=== PATIENT | male | born 1960 | race Caucasian/White ===

== ENCOUNTER → 2017-11-27 | Outpatient (CLI) | payer OTHER ==
[~2017-11-27] MED LIST: REGADENOSON 0.4 MG/5 ML SYRINGE IV ONE
--- NOTE | 2017-11-27 10:31 | EST ---
EXERCISE STRESS AGE: 57 SEX: M HT: 6' WT: 220 PROTOCOL: Lexiscan Cardiolite Stress Test HEART RATE REST: 61 BLOOD PRESSURE REST: 141/94 MAXIMUM HEART RATE ACHIEVED: 77 MAXIMUM BLOOD PRESSURE: 141/94 85% MPHR: 137 100% MPHR: 161 INDICATIONS: Chest pain. CLINICAL INFORMATION: Baseline EKG shows sinus rhythm, normal axis, normal intervals. Patient was given intravenous Lexiscan as per protocol. Did not have chest pain or diagnostic ST-segment depression. CONCLUSION: 1. Negative stress test by EKG criteria. 2. Cardiolite portion of the stress test will be reported separately. MMODL / IJN: [id number] /
--- NOTE | 2017-11-27 11:16 | NM ---
EXAMINATION TYPE: NM stress lexiscan cardiolite DATE OF EXAM: 11/27/2017 COMPARISON: NONE HISTORY: Chest pain TECHNIQUE: After the intravenous administration of 10.04 mCi Tc 99m Sestamibi - Cardiolite resting S PECT images acquired 45 minutes post injection. The patient received 0.4mg Lexiscan, 25.7 mCi Tc 99m Sestamibi - Stress images obtained [address] injection FINDINGS: Review of stress and rest SPECT images demonstrates decreased radio pharmaceutical uptake at the card iac apex on stress as compared to rest images and also involving the anterior wall the left ventricle , there may be some decreased uptake on stress images as compared to rest images towards the base of the heart at the inferolateral left ventricular wall. Gated analysis shows normal wall motion with a n estimated left ventricular ejection fraction of 54 %. 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 A Yellow level critical message alert has been initiated for Sigrid Rai DO via the [employer] Critical Results System on 11/27/2017 11:13 AM. This message alert has been sent to Sigrid Rustromeo sepulveda DO via the preferences provided by the clinician for the receipt of Radiology Critical Findings . Message ID [id number].
== END | disposition home or self-care (01) ==
LOC: RADNMMAIN 07:49
PROVIDERS: ATTEND Family Medicine
DX: R07.89 Other chest pain (principal)
CPT/HCPCS: 93017; 78452; A9500; J2785

== ENCOUNTER 2017-12-08 10:51 | Day surgery (SDC) | payer OTHER ==
[2017-12-05 08:35] VITALS: BMI 29.8
[~2017-12-08 10:51] MED LIST changes: +ALPRAZolam 0.25 MG TAB PO PRN; +ALPRAZolam 0.5 MG TAB PO PRN; +ASPIRIN 325 MG TAB PO STA; +ATORVASTATIN 80 MG TAB PO STA; +NITROGLYCERIN SL TABS 0.4 MG TAB SUBLINGUAL PRN; -REGADENOSON 0.4 MG/5 ML SYRINGE IV ONE; +SODIUM CHLORIDE 0.9% 1,000 ML in EMPTY BAG 1 BAG IV ONE
[2017-12-08] MEDS ORDERED: MIDAZOLAM 2 MG/2 ML VIAL ONE (12:47)
[2017-12-08] MEDS ORDERED: LIDOCAINE 2% INJ 20 MG/ML (20 ML MDV) ONE (12:47)
[2017-12-08] MEDS ORDERED: VERAPAMIL 2.5 MG/ML 2 ML AMP ONE (12:47)
[2017-12-08] MEDS ORDERED: HEPARIN SODIUM 1,000 UN/ML (10ML VL) ONE (12:48)
[2017-12-08] MEDS ORDERED: fentaNYL (PF) 50 MCG/ML 2 ML AMP ONE ×2 (12:48→14:11)
[2017-12-08] MEDS ORDERED: IV FLUID CONTINUATION 1,000 ML IV ONE (12:53)
[2017-12-08] MEDS ORDERED: MIDAZOLAM 2 MG/2 ML VIAL IV ONE (13:02)
[2017-12-08] MEDS ORDERED: fentaNYL (PF) 50 MCG/ML 2 ML AMP IV ONE ×2 (13:04→14:15)
[2017-12-08] MEDS ORDERED: LIDOCAINE 2% INJ 20 MG/ML SQ ONE (13:05)
[2017-12-08] MEDS ORDERED: BIVALIRUDIN BOLUS 250 MG/50 ML IV ONE (13:40)
--- NOTE | 2017-12-08 13:40 | P.PCN ---
Date of Procedure: 12/08/17 Preoperative Diagnosis: Chest pain and a positive stress test Postoperative Diagnosis: Intermediate to severe disease in the mid LAD Procedure(s) Performed: Left heart catheterization without left ventriculography Description of Procedure: HISTORY: This is a 57-year-old gentleman with history of chest pains and positive stress test with ischemia in the anteroapical region. Patient is advised to have cardiac catheterization for definitive diagnosis. CONSENT:I have discussed the risks, benefits and alternative therapies for the above-mentioned procedure and for both sedation/analgesia as well as necessary blood product administration, if indicated, as they pertain to this patient. The patient has indicated understanding and acceptance of the risks and procedures discussed. PROCEDURE: Patient was brought to the lab in a fasting state. Patient was given some IV sedation. The right groin is infiltrated with lidocaine and right femoral artery was entered using Seldinger technique. A 6-Malay catheter was left in place and selective coronary arteriography and left ventriculography was performed. Patient tolerated the procedure well. Femoral angiogram was performed and Angio-Seal was applied for hemostasis. No immediate complications were noted and patient was transferred to [facility] in a stable condition Conscious Sedation: Versed 1mg Fentanyl 50 g Duration 19minutes HEMODYNAMICS: The aortic pressure is about 140/80. Left ankle end-diastolic pressure is 5-10. There was no gradient across the aortic valve SELECTIVE CORONARY ARTERIOGRAPHY: LEFT MAIN: Long and free of any occlusive disease THE LEFT ANTERIOR DESCENDING CORONARY ARTERY: This is a good caliber vessel in the proximal portion. Use ice to good-sized diagonal branch. There appears to be intermittent stenosis involving the mid LAD off the diagonal branch. In certain views it appears to be critical. Beyond the lesion. The LAD appears to be free of occlusive disease. THE LEFT CIRCUMFLEX AND IS CORONARY ARTERY:This is a moderate caliber vessel free of any significant branches.. Free of any occlusive disease THE RIGHT CORONARY ARTERY: This is a dominant vessel giving rise to good-sized PDA and PLV branches. The right coronary artery and branches are free of occlusive disease LEFT VENTRICULOGRAPHY: Not performed FINAL IMPRESSION: Intermediate to critical lesion involving the mid LAD artery origin of the diagonal PLAN: Patient is going to have FFR by Dr. Self. Further recommendations will depend upon the findings on the FFR PROGNOSIS: Fair
[2017-12-08] MEDS ORDERED: BIVALIRUDIN 250 MG in SODIUM CHLORIDE 0.9% 50 ML IV ONE (13:46)
[2017-12-08] MEDS ORDERED: NITROGLYCERIN 1000MCG/10ML SYRINGE INTRACORON ONE ×2 (13:50→13:51)
[2017-12-08] MEDS ORDERED: IOPAMIDOL-370 125ML BTL INJ ONE (13:54)
[2017-12-08] MEDS ORDERED: ADENOSINE 90 MG in SODIUM CHLORIDE 0.9% 60 ML IVP ONE (14:02)
[2017-12-08] MEDS ORDERED: IOPAMIDOL-370 100ML BTL INJ ONE (14:09)
[2017-12-08] MEDS ORDERED: RX INFO: IV CONTRAST WAS GIVEN 1 EACH MISC MISCELLANE PRN (14:31)
[2017-12-08] MEDS ORDERED: SODIUM CHLORIDE 0.9% 1,000 ML IV SCH (14:45)
[2017-12-08] MEDS ORDERED: ACETAMINOPHEN TAB 325 MG TAB PO PRN (17:57)
[2017-12-08] MEDS: METOPROLOL TARTRATE 25 MG TAB PO SCH (20:18)
--- NOTE | 2017-12-08 21:50 | PCN ---
PROCEDURE NOTE DATE OF SERVICE: December 08, 2017 PERFORMING PHYSICIAN: Gama Ag MD, hearse driver. PROCEDURE PERFORMED: Fractional flow reserve of the LAD. INDICATIONS: This is a pleasant 57-year-old gentleman who sees Dr. Martinez in the office as an outpatient who was experiencing intermittent episodes of chest discomfort and underwent myocardial perfusion imaging stress test and that revealed anteroapical ischemia. He underwent a heart catheterization by Dr. Martinez and that revealed intermediate to severe disease involving the mid LAD by the bifurcation of a diagonal branch. The decision was made towards fractional flow reserve of the LAD to assess the severity of the lesion. APPROACH: Right common femoral artery. COMPLICATION: None. LEVEL OF SEDATION: Moderate with sedation length of 32 minutes. PROCEDURE DESCRIPTION: After diagnostic heart catheterization was performed by Dr. Martinez and after reviewing the angiogram, we decided to do an FFR of the LAD. Anticoagulation was initiated using Angiomax. After zeroing the Doppler wire and equalizing between the Doppler wire and the guiding catheter, we did FFR per IV adenosine infusion and the FFR came in to be 0.85. At that point, we decided to pursue a conservative medical approach and medical treatment only. CONCLUSION: Intermediate to severe lesion involving the mid LAD with FFR of 0.85. POSTPROCEDURE MANAGEMENT: Medical treatment. MMODL / IJN: [id number] /
[2017-12-09 08:11] VITALS: BP 131/78; PULSE 62; RESP 14; TEMP 98
--- NOTE | 2017-12-09 10:32 | P.PN ---
Subjective Progress Note Date: 12/09/17 Discharge note This is a 57-year-old gentleman with history of chest pain and positive stress test with ischemia in the anterior apical region advised to undergo cardiac catheterization. Cardiac catheterization was performed yesterday by Dr. Martinez which revealed intermediate to critical lesion involving the mid LAD. Subsequent to that patient underwent an FFR which came back to be 0.85. Medical therapy was advised. Patient initially was discharged and ready to go yesterday but had some oozing at the groin and therefore was kept overnight. He was seen and examined this morning, groin is stable, no bruit, soft, good distal pulse. Hemodynamically he is stable, denies any chest discomfort. Objective - Vital Signs Vital signs: Vital Signs Temp 98.0 F 12/09/17 08:00 Pulse 62 12/09/17 08:00 Resp 14 12/09/17 08:00 BP 131/78 12/09/17 08:00 Pulse Ox 95 12/09/17 08:00 Intake & Output 12/08/17 12/09/17 12/09/17 18:59 06:59 18:59 Intake Total 474.8 Output Total 900 Balance 474.8 -900 Weight 99.79 kg 99.79 kg Intake: IV 234.8 Oral 240 Output: Urine 900 Other: Voiding Method Urinal Urinal Urinal # Voids 3 - Exam PHYSICAL EXAMINATION: HEENT: Head is atraumatic, normocephalic. Pupils equal, round. Neck is supple. There is no elevated jugular venous pressure. HEART EXAMINATION: Heart S1, S2 normal. No murmur or gallop heard. CHEST EXAMINATION: Lungs are clear to auscultation and precussion. No chest wall tenderness is noted on palpation or with deep breathing. ABDOMEN: Soft, nontender. Bowel sounds are heard. No organomegaly noted. Right groin soft, no hematoma EXTREMITIES: 2+ peripheral pulses with no evidence of peripheral edema and no calf tenderness noted. NEUROLOGIC patient is awake, alert and oriented -3. . Assessment and Plan Plan: Assessment and plan #1 status post cardiac catheterization which revealed a lesion in the LAD, status post FFR which came back to be 0.85. Medical therapy advised. #2 hypertension #3 hyperlipidemia Plan Patient may be able to be discharged home today. We'll make him a follow-up appointment to see Dr. Martinez in the office in one week. Patient will be discharged home on aspirin 81 mg daily, metoprolol 25 mg twice a day, Zestril 5 mg daily and sublingual to this and as needed for chest pain. DNP note has been reviewed, I agree with a documented findings and plan of care. Patient was seen and examined.
[2017-12-09] MEDS: METOPROLOL TARTRATE 25 MG TAB PO SCH (11:34)
== END 2017-12-09 11:40 | disposition home or self-care (01) ==
LOC: CATHCVL 10:51 → 3OBS 14:09 → CATHCVL 12-09 11:40
PROVIDERS: ATTEND Internal Medicine Cardiovascular Disease
DX: I25.10 Atherosclerotic heart disease of native coronary artery without angina pectoris (principal); I10 Essential (primary) hypertension; Z87.891 Personal history of nicotine dependence; Z82.49 Family history of ischemic heart disease and other diseases of the circulatory system; Z79.82 Long term (current) use of aspirin; Z79.899 Other long term (current) drug therapy
CPT/HCPCS: 93571; 93458; C1769 ×2; C1887; C1894; C1760; J2001; J2250; J3010; J0583; J0153; Q9967 ×2

== ENCOUNTER 2018-06-01 09:25 | Day surgery (SDC) | payer OTHER ==
[2018-05-31 08:22] VITALS: BMI 29.5
[~2018-06-01 09:25] MED LIST changes: -ALPRAZolam 0.25 MG TAB PO PRN; -ALPRAZolam 0.5 MG TAB PO PRN; -ASPIRIN 325 MG TAB PO STA; -ATORVASTATIN 80 MG TAB PO STA; +LACTATED RINGERS 1,000 ML IV SCH; -NITROGLYCERIN SL TABS 0.4 MG TAB SUBLINGUAL PRN; -SODIUM CHLORIDE 0.9% 1,000 ML in EMPTY BAG 1 BAG IV ONE
[2018-06-01 09:44] VITALS: RESP 16; TEMP 97.9
[2018-06-01] MEDS ORDERED: LIDOCAINE 1% 20 ML VIAL (10MG/ML) FOR IV START INTRADERMA ONE (09:50)
[2018-06-01] MEDS ORDERED: LACTATED RINGERS 1,000 ML IV ONE (09:51)
[2018-06-01] MEDS ORDERED: GLYCOPYRROLATE 0.2 MG/ML 2 ML VIAL ONE (12:05)
[2018-06-01] MEDS ORDERED: PROPOFOL 10 MG/ML 20 ML VIAL IV ONE (12:05)
[2018-06-01] MEDS ORDERED: LIDOCAINE 1% INJ 10MG/ML (20 ML MDV) ONE (12:05)
--- NOTE | 2018-06-01 12:09 | P.GSHP ---
History of Present Illness H&P Date: 06/01/18 Chief Complaint: screening colonoscopy 's is a 58-year-old male who presents today for screening colonoscopy. Patient denies any significant GI complaints. Past Medical History Past Medical History: Liver Disease, Osteoarthritis (OA) Additional Past Medical History / Comment(s): RECENT BLOOD IN STOOL, Cirrosis of liver. past Hx Hep. C, finished tx, currently no problems. History of Any Multi-Drug Resistant Organisms: None Reported Past Surgical History: Hernia Repair, Tonsillectomy Past Anesthesia/Blood Transfusion Reactions: No Reported Reaction Smoking Status: Former smoker - Past Family History Father Family Medical History: Myocardial Infarction ([place]) Additional Family Medical History / Comment(s): ay age 53. Mother Additional Family Medical History / Comment(s): Very poor circlualtion in legs, had to have surgery for. Medications and Allergies Home Medications Medication Instructions Recorded Confirmed Type Aspirin 325 mg PO ONCE 12/05/17 05/31/18 History Lisinopril [Zestril] 5 mg PO DAILY 12/05/17 06/01/18 History Metoprolol Tartrate 25 mg PO BID 12/05/17 06/01/18 History Multivitamins, Thera [Multivitamin 1 tab PO DAILY 12/05/17 06/01/18 History (formulary)] Sertraline [Zoloft] 50 mg PO DAILY 12/05/17 06/01/18 History Zolpidem Tartrate [Ambien] 5 mg PO HS 12/05/17 06/01/18 History Allergies Allergy/AdvReac Type Severity Reaction Status Date / Time bupropion [From Wellbutrin] Allergy Rash/Hives Verified 06/01/18 09:37 Surgical - Exam Vital Signs Temp Pulse Resp BP Pulse Ox 97.9 F 53 L 16 149/70 97 06/01/18 09:43 06/01/18 09:43 06/01/18 09:43 06/01/18 09:43 06/01/18 09:43 - General well developed, no distress - Eyes PERRL - ENT normal pinna - Neck no masses - Respiratory normal expansion - Cardiovascular Rhythm: regular - Abdomen Abdomen: soft, non tender Assessment and Plan Assessment: we'll perform screening colonoscopy.
--- NOTE | 2018-06-01 12:20 | P.OP ---
Date of Procedure: 06/01/18 Preoperative Diagnosis: screening colonoscopy Postoperative Diagnosis: mild diverticulosis Procedure(s) Performed: colonoscopy Anesthesia: MAC Surgeon: Wilbur Walker Pathology: none sent Condition: stable Disposition: PACU Description of Procedure: the patient's placed on the endoscopy table in the lateral position. He received IV sedation. Digital rectal exam was performed which revealed no ebonized. The prostate was symmetric without nodules. The flexible colonoscope was then placed patient anus and passed throughout the entire colon. The ileocecal valve was visualized. The cecum, ascending and transverse colon appeared normal. In the descendingand sigmoid was mild diverticular changes. Scope was then brought back the rectum and this appeared normal. Scope was withdrawn for patient.
[2018-06-01 12:40] VITALS: BP 105/69; PULSE 56
== END 2018-06-01 13:05 | disposition home or self-care (01) ==
LOC: ORWHC2ENDO 09:25
PROVIDERS: ATTEND Surgery
DX: Z12.11 Encounter for screening for malignant neoplasm of colon (principal); K57.30 Diverticulosis of large intestine without perforation or abscess without bleeding; M19.90 Unspecified osteoarthritis, unspecified site; I10 Essential (primary) hypertension; Z87.891 Personal history of nicotine dependence; Z79.82 Long term (current) use of aspirin; Z82.49 Family history of ischemic heart disease and other diseases of the circulatory system; Z86.19 Personal history of other infectious and parasitic diseases; Z88.8 Allergy status to other drugs, medicaments and biological substances; Z79.899 Other long term (current) drug therapy
CPT/HCPCS: 45378; J2001; J2704

== ENCOUNTER → 2018-12-18 | Outpatient (CLI) | payer OTHER ==
--- NOTE | 2018-12-18 13:02 | CT ---
EXAMINATION TYPE: CT chest wo con DATE OF EXAM: 12/18/2018 COMPARISON: None HISTORY: 58-year-old male Mid to left chest pain x 1 year. TECHNIQUE: Contiguous axial scanning of the chest without IV contrast. Coronal and sagittal reconstru ctions performed. CT DLP: 618 mGycm Automated exposure control for dose reduction was used. FINDINGS: Heart normal size without pericardial effusion. Coronary vessel calcifications are present. Borderline ectatic ascending aorta at 3.5 cm. Conventional branching anatomy. Calcified precarinal and subcarinal lymph nodes compatible prior granulomatous disease. No thoracic l ymphadenopathy. Trace bilateral gynecomastia. Mild biapical pleural parenchymal scarring with mild centrilobular emphysema. Calcified granuloma basilar right middle lobe. 7 mm right basilar pulmonary nodule, axial image 45. No consolidation or pleural effusion. Visualized upper abdomen shows splenomegaly at 16.6 cm with an anterior splenule. Possible subtle con tour nodularity of the liver. Cholelithiasis with collapsed gallbladder comment prominent small colla teral vessels adjacent to the gastric fundus. Bones: No osseous destructive process. Mild to moderate multilevel degenerative disc disease. IMPRESSION: 1. COPD WITH MILD EMPHYSEMA AND PRIOR GRANULOMATOUS DISEASE. 7 MM RIGHT BASILAR PULMONARY NODULE MAY REPRESENT A NONCALCIFIED GRANULOMA. [address] MON[address] FOLLOW-UP CT RECOMMENDED TO REASSESS. 2. SPLENOMEGALY AT 16.6 CM. PROMINENT UPPER ABDOMINAL COLLATERAL VESSELS. POSSIBLE SUBTLE CONTOUR NOD ULARITY OF THE LIVER. CORRELATE FOR POSSIBLE UNDERLYING CIRRHOSIS AND PORTAL VENOUS HYPERTENSION. 3. CHOLELITHIASIS.
== END ==
LOC: RADCTMAIN 11:23
PROVIDERS: ATTEND Family Medicine
DX: R07.9 Chest pain, unspecified (principal); J43.9 Emphysema, unspecified; R91.1 Solitary pulmonary nodule; R16.1 Splenomegaly, not elsewhere classified; K80.20 Calculus of gallbladder without cholecystitis without obstruction
CPT/HCPCS: 71250

== ENCOUNTER 2019-01-08 10:11 | Day surgery (SDC) | payer OTHER ==
[2019-01-04 08:47] VITALS: BMI 29.8
[2019-01-08 10:25] VITALS: RESP 16; TEMP 97.8
[2019-01-08] MEDS ORDERED: LIDOCAINE 1% 20 ML VIAL (10MG/ML) FOR IV START INTRADERMA ONE (10:25)
--- NOTE | 2019-01-08 10:51 | P.GSHP ---
History of Present Illness H&P Date: 01/08/19 Chief Complaint: GERD This a 58-year-old male referred from Dr. Sigrid Rai. Patient is today for EGD. He's had issues with GERD. Past Medical History Past Medical History: Hyperlipidemia, Hypertension, Liver Disease, Osteoarthri tis (OA) Additional Past Medical History / Comment(s): Cirrosis of liver. past Hx Hep. C, finished tx, currently no problems.,SMALL HEART BLOCKAGE History of Any Multi-Drug Resistant Organisms: None Reported Past Surgical History: Heart Catheterization, Hernia Repair, Tonsillectomy Additional Past Surgical History / Comment(s): COLONOSCOPY X 2 Past Anesthesia/Blood Transfusion Reactions: No Reported Reaction Smoking Status: Former smoker - Past Family History Father Family Medical History: Myocardial Infarction ([place]) Additional Family Medical History / Comment(s): ay age 53. Mother Additional Family Medical History / Comment(s): Very poor circlualtion in legs, had to have surgery for. Medications and Allergies Home Medications Medication Instructions Recorded Confirmed Type Lisinopril [Zestril] 5 mg PO DAILY 12/05/17 01/04/19 History Metoprolol Tartrate 25 mg PO BID 12/05/17 01/08/19 History Multivitamins, Thera [Multivitamin 1 tab PO DAILY 12/05/17 01/08/19 History (formulary)] Sertraline [Zoloft] 50 mg PO DAILY 12/05/17 01/08/19 History Zolpidem Tartrate [Ambien] 5 mg PO HS PRN MDD TAKE EITHER 12/05/17 01/08/19 History AMBIEN OR TRAZODON Aspirin [Adult Low Dose Aspirin EC] 81 mg PO DAILY 01/04/19 01/04/19 History Atorvastatin [Lipitor] 10 mg PO HS 01/04/19 01/04/19 History Clopidogrel [Plavix] 75 mg PO DAILY 01/04/19 01/04/19 History amLODIPine [Norvasc] 5 mg PO DAILY 01/04/19 01/04/19 History traZODone HCL 25 mg PO HS PRN MDD TAKE EITHER 01/04/19 01/08/19 History TRAZODONE OR AMBIE Allergies Allergy/AdvReac Type Severity Reaction Status Date / Time bupropion [From Wellbutrin] Allergy Rash/Hives Verified 01/08/19 10:22 Surgical - Exam Vital Signs Temp Pulse Resp BP Pulse Ox 97.8 F 54 L 16 133/77 96 01/08/19 10:24 01/08/19 10:24 01/08/19 10:24 01/08/19 10:24 01/08/19 10:24 - General well developed, well nourished, no distress - Eyes PERRL - ENT normal pinna - Neck no masses - Respiratory normal expansion - Cardiovascular Rhythm: regular - Abdomen Abdomen: soft, non tender Assessment and Plan Assessment: GERD. We'll perform EGD.
[2019-01-08] MEDS ORDERED: LIDOCAINE 1% INJ 10MG/ML (20 ML MDV) ONE (10:52)
[2019-01-08] MEDS ORDERED: PROPOFOL 10 MG/ML 20 ML VIAL IV ONE (10:52)
--- NOTE | 2019-01-08 11:03 | P.OP ---
Date of Procedure: 01/08/19 Preoperative Diagnosis: GERD Postoperative Diagnosis: Antral gastritis Procedure(s) Performed: EGD Anesthesia: MAC Surgeon: Wilbur Walker Pathology: other (Antral, esophagus) Condition: stable Disposition: PACU Description of Procedure: The patient's placed on the endoscopy table in the lateral position. He received IV sedation. The gastroscope placed oropharynx and passed in the esophagus and into the stomach. Scope was placed through the pylorus. The first and second portion duodenum. Normal. Scope was then brought back the antrum this. Mildly inflamed. A biopsies performed. The scope was then retroflexed and the remainder the stomach appeared normal. There was no significant hiatal hernia. The distal esophagus was at 47 is. The distal esophagus appeared mildly inflamed and a biopsies performed. The proximal esophagus appeared normal. Scope was withdrawn for patient.
[2019-01-08 11:24] VITALS: BP 119/73; PULSE 56
== END 2019-01-08 11:43 | disposition home or self-care (01) ==
LOC: ORWHC2ENDO 10:11
PROVIDERS: ATTEND Surgery
DX: K21.9 Gastro-esophageal reflux disease without esophagitis (principal); K29.50 Unspecified chronic gastritis without bleeding; K31.89 Other diseases of stomach and duodenum; K22.8 Other specified diseases of esophagus; Z86.19 Personal history of other infectious and parasitic diseases; I11.9 Hypertensive heart disease without heart failure; E78.5 Hyperlipidemia, unspecified; K74.60 Unspecified cirrhosis of liver; M19.90 Unspecified osteoarthritis, unspecified site; Z87.891 Personal history of nicotine dependence; Z97.2 Presence of dental prosthetic device (complete) (partial); Z79.82 Long term (current) use of aspirin; Z79.02 Long term (current) use of antithrombotics/antiplatelets; Z79.899 Other long term (current) drug therapy; Z88.8 Allergy status to other drugs, medicaments and biological substances; Z82.49 Family history of ischemic heart disease and other diseases of the circulatory system
CPT/HCPCS: 43239; 88305; J2001; J2704

== ENCOUNTER 2019-01-14 07:47 | Day surgery (SDC) | payer OTHER ==
[2019-01-09 15:58] VITALS: BMI 30.1
[~2019-01-14 07:47] MED LIST changes: +DEXAMETHASONE SOD PHOSPHATE 10 MG/ML 1 ML VIAL IV ONE; +HEPARIN SODIUM,PORCINE 5,000 UNIT/ML 1 ML VIAL SQ ONE; +LIDOCAINE 1% 20 ML VIAL (10MG/ML) FOR IV START INTRADERMA PRN; +MIDAZOLAM 2 MG/2 ML VIAL IV PRN; +ceFAZolin IN SWFI 2 GM/20 ML SYRINGE IVP ONE
[2019-01-14] MEDS ORDERED: ONDANSETRON 4 MG/2 ML VIAL IVP ONE (08:19)
--- NOTE | 2019-01-14 08:52 | P.GSHP ---
History of Present Illness H&P Date: 01/14/19 Chief Complaint: Right upper quadrant pain This a 4-year-old male who's had complaints of right upper quadrant pain. Recent CAT scan shows evidence of cholelithiasis. He presents today for laparoscopic cholecystectomy. Past Medical History Past Medical History: Coronary Artery Disease (CAD), Chest Pain / Angina, Hypertension, Liver Disease, Osteoarthritis (OA) Additional Past Medical History / Comment(s): diverticulitis, Cirrhosis of liver. past Hx Hep. C- finished tx, mild emphysema History of Any Multi-Drug Resistant Organisms: None Reported Past Surgical History: Hernia Repair, Tonsillectomy Additional Past Surgical History / Comment(s): vasectomy, oral surgery Past Anesthesia/Blood Transfusion Reactions: Motion Sickness Additional Past Anesthesia/Blood Transfusion Reaction / Comment(s): got seasick on a cruise Smoking Status: Former smoker - Past Family History Father Family Medical History: Myocardial Infarction ([place]) Additional Family Medical History / Comment(s): ay age 53. Mother Family Medical History: Deep Vein Thrombosis (DVT) Additional Family Medical History / Comment(s): . Medications and Allergies Home Medications Medication Instructions Recorded Confirmed Type Metoprolol Tartrate 25 mg PO BID 12/05/17 01/14/19 History Multivitamins, Thera [Multivitamin 1 tab PO DAILY 12/05/17 01/14/19 History (formulary)] Sertraline [Zoloft] 50 mg PO HS 12/05/17 01/14/19 History Zolpidem Tartrate [Ambien] 5 mg PO HS PRN MDD TAKE EITHER 12/05/17 01/14/19 History AMBIEN OR TRAZODON Aspirin [Adult Low Dose Aspirin EC] 81 mg PO DAILY 01/04/19 01/14/19 History Atorvastatin [Lipitor] 10 mg PO HS 01/04/19 01/14/19 History Clopidogrel [Plavix] 75 mg PO HS 01/04/19 01/14/19 History amLODIPine [Norvasc] 5 mg PO HS 01/04/19 01/14/19 History traZODone HCL 25 mg PO HS PRN MDD TAKE EITHER 01/04/19 01/14/19 History TRAZODONE OR AMBIE Lisinopril 40 mg PO DAILY 01/10/19 01/14/19 History Naproxen Sodium [Aleve] 220 mg PO DAILY 01/10/19 01/14/19 History Omeprazole [PriLOSEC] 40 mg PO DAILY 01/10/19 01/14/19 History Allergies Allergy/AdvReac Type Severity Reaction Status Date / Time bupropion [From Wellbutrin] Allergy Rash/Hives/ Verified 01/14/19 08:02 itching heptitis C medication Allergy dry skin Uncoded 01/14/19 08:02 Surgical - Exam Vital Signs Temp Pulse Resp BP Pulse Ox 98.2 F 57 L 15 129/74 96 01/14/19 08:07 01/14/19 08:07 01/14/19 08:07 01/14/19 08:07 01/14/19 08:07 - General well developed, well nourished, no distress - Eyes PERRL - ENT normal pinna - Neck no masses - Respiratory normal expansion - Cardiovascular Rhythm: regular - Abdomen Abdomen: soft, non tender Assessment and Plan Assessment: Cholelithiasis Right quadrant pain Perform laparoscopic cholecystectomy
[2019-01-14] MEDS ORDERED: fentaNYL (PF) 50 MCG/ML 2 ML AMP ONE (09:01)
[2019-01-14] MEDS ORDERED: PROPOFOL 10 MG/ML 20 ML VIAL IV ONE (09:01)
[2019-01-14] MEDS ORDERED: MIDAZOLAM 2 MG/2 ML VIAL ONE (09:01)
[2019-01-14] MEDS ORDERED: LIDOCAINE 1% INJ 10MG/ML (20 ML MDV) ONE (09:01)
[2019-01-14] MEDS ORDERED: SUCCINYLCHOLINE CHLORIDE 100 MG/5 ML SYR IV ONE (09:01)
[2019-01-14] MEDS ORDERED: ROCURONIUM BROMIDE 10 MG/ML 10 ML VIAL IV ONE (09:01)
[2019-01-14] MEDS ORDERED: GLYCOPYRROLATE 0.2 MG/ML 2 ML VIAL ONE (09:01)
[2019-01-14] MEDS ORDERED: NEOSTIGMINE 1 MG/ML 10 ML VIAL ONE (09:01)
[2019-01-14] MEDS ORDERED: KETOROLAC 30 MG/ML 1 ML VIAL ONE (09:01)
[2019-01-14] MEDS ORDERED: BUPIVACAIN-EPI 0.25%-1:200,000 30 ML VIAL SQ ONE (09:30)
[2019-01-14 09:57] VITALS: TEMP 97.2
--- NOTE | 2019-01-14 09:57 | P.OP ---
Date of Procedure: 01/14/19 Preoperative Diagnosis: Cholelithiasis Postoperative Diagnosis: Cholelithiasis Procedure(s) Performed: Laparoscopic cholecystectomy Anesthesia: MELYSSA Surgeon: Wilbur Walker Estimated Blood Loss (ml): 5 Pathology: other (Gallbladder) Condition: stable Disposition: PACU Description of Procedure: The patient was placed on the operating table. The patient received a general endotracheal tube anesthesia. The patients abdomen was prepped and draped in the usual sterile fashion. Through an infraumbilical stab incision, the fascia of the anterior abdominal wall was grasped with a pair of Kochers and then the Veress needle was placed in the peritoneal cavity. Position of the Veress needle was confirmed with positive drop test. The abdomen was then insufflated. After adequate insufflation, the 10 mm trocar was placed in the peritoneal cavity. Following this the laparoscope was placed in the peritoneal cavity. The patient was placed in the head-up, right side up position and then a 5 mm trocar was placed in the right lateral and right subcostal position under direct visualization. A 8 mm trocar was placed in the epigastric position. The gallbladder was grasped in the fundus and infundibulum. Traction on the gallbladder was placed in the lateral and the cephalad positions. The triangle of Calot was visualized.. The cystic duct was bluntly dissected until the union of the cystic duct and common bile duct was seen. A critical view of safety was achieved. The cystic duct was then divided and sealed with the Harmonic scissors. A PDS Endoloop was then placed throughout the cystic duct stump. The cystic artery divided and sealed with the Harmonic scissors. The gallbladder was then removed from the liver bed using Harmonic scissors. The gallbladder was then extracted through the epigastric port site. Operative field was checked for any bleeding spots and Harmonic scissors was used to coagulate the liver bed. The abdomen was irrigated. The trocars were removed. The skin was closed using interrupted 3-0 Vicryl suture. Dermabond dressing were applied. The patient tolerated the procedure well.
[2019-01-14] MEDS: fentaNYL (PF) 50 MCG/ML 2 ML AMP IV PRN ×2 (10:23→10:30)
[2019-01-14] MEDS ORDERED: HYDROcodone/APAP 7.5-325MG 1 EACH TAB PO ONE (11:02)
[2019-01-14 11:45] VITALS: BP 112/74; PULSE 69; RESP 20
== END 2019-01-14 12:10 | disposition home or self-care (01) ==
LOC: OR 07:47
PROVIDERS: ATTEND Surgery
DX: K80.10 Calculus of gallbladder with chronic cholecystitis without obstruction (principal); I10 Essential (primary) hypertension; I25.119 Atherosclerotic heart disease of native coronary artery with unspecified angina pectoris; E78.5 Hyperlipidemia, unspecified; M19.90 Unspecified osteoarthritis, unspecified site; F32.9 Major depressive disorder, single episode, unspecified; K74.60 Unspecified cirrhosis of liver; J43.9 Emphysema, unspecified; K21.9 Gastro-esophageal reflux disease without esophagitis; Z86.19 Personal history of other infectious and parasitic diseases; Z87.891 Personal history of nicotine dependence; Z97.2 Presence of dental prosthetic device (complete) (partial); Z79.899 Other long term (current) drug therapy; Z79.82 Long term (current) use of aspirin; Z79.02 Long term (current) use of antithrombotics/antiplatelets; Z79.1 Long term (current) use of non-steroidal anti-inflammatories (NSAID); Z88.8 Allergy status to other drugs, medicaments and biological substances
CPT/HCPCS: 47562; 88304; J2250; J1644; J1100; J2710; J2405; J2001; J3010; J1885; J0330; J2704; J0690

== ENCOUNTER → 2020-03-16 | Outpatient (CLI) | payer OTHER ==
[2020-03-16 17:18] LABS: Chol/HDL Ratio 2.17; LDL Cholesterol,Calculated 20.8 mg/dL (0.0-131.0); VLDL Calculation 21.2 mg/dL (5.00-40.00)
[2020-03-17 10:38] LABS: Lipoprotein A 6 mg/dL (0-30)
== END ==
LOC: LABWHC1 07:18
PROVIDERS: ATTEND Internal Medicine Clinical Cardiac Electrophysiology
DX: I25.10 Atherosclerotic heart disease of native coronary artery without angina pectoris (principal); E78.5 Hyperlipidemia, unspecified
CPT/HCPCS: 36415; 80061; 82172; 83695

== ENCOUNTER → 2020-09-02 | Outpatient (CLI) | payer OTHER ==
[2020-09-02 13:09] VITALS: BP 152/89; PULSE 60; RESP 18; TEMP 97.4
--- NOTE | 2020-09-02 13:59 | P.PAINCN ---
History of Present Illness - Reason for Consult Consult date: 09/02/20 - History of Present Illness This is 60 years old male with a chronic history of severe neck pain, started 6 possible after work-related injury(trauma to the head ) after that he started complaining of severe neck pain with occasional headaches, and he had occasional numbness and tingling sensation in the upper extremity, the neck pain is interfering with his ability to move his neck, and intensity of the neck pain increased with activity of daily livings, he denies any motor or sensory deficit he denies any fever or night sweats, he continued to work, but the intensity of the neck pain interfere with her quality of life, he denies any change in the bowel movements or urination Past Medical History Past Medical History: COPD, Liver Disease, Osteoarthritis (OA) Additional Past Medical History / Comment(s): RECENT BLOOD IN STOOL, Cirrosis of liver. past Hx Hep. C, finished tx, currently no problems. History of Any Multi-Drug Resistant Organisms: None Reported Past Surgical History: Hernia Repair, Tonsillectomy Additional Past Surgical History / Comment(s): vasectomy, oral surgery, gaull bladder, stent. Past Anesthesia/Blood Transfusion Reactions: No Reported Reaction Additional Past Anesthesia/Blood Transfusion Reaction / Comm: got seasick on a cruise Past Psychological History: Depression Smoking Status: Former smoker Past Alcohol Use History: None Reported Additional Past Alcohol Use History / Comment(s): Quit smoking 2012, smoked 35 yrs, 1 PPD. Past Drug Use History: None Reported - Past Family History Father Family Medical History: Myocardial Infarction ([place]) Additional Family Medical History / Comment(s): ay age 53. Mother Family Medical History: Deep Vein Thrombosis (DVT) Additional Family Medical History / Comment(s): heart disease. Medications and Allergies Home Medications Medication Instructions Recorded Confirmed Type Metoprolol Tartrate 25 mg PO BID 12/05/17 09/02/20 History Multivitamins, Thera [Multivitamin 1 tab PO DAILY 12/05/17 09/02/20 History (formulary)] Sertraline [Zoloft] 50 mg PO HS 12/05/17 09/02/20 History Aspirin [Adult Low Dose Aspirin EC] 81 mg PO DAILY 01/04/19 09/02/20 History Atorvastatin [Lipitor] 10 mg PO HS 01/04/19 09/02/20 History Clopidogrel [Plavix] 75 mg PO HS 01/04/19 09/02/20 History amLODIPine [Norvasc] 5 mg PO HS 01/04/19 09/02/20 History traZODone HCL 25 mg PO HS PRN MDD TAKE EITHER 01/04/19 09/02/20 History TRAZODONE OR AMBIE Naproxen Sodium [Aleve] 220 mg PO DAILY 01/10/19 09/02/20 History Omeprazole [PriLOSEC] 40 mg PO DAILY 01/10/19 09/02/20 History lisinopriL 40 mg PO DAILY 01/10/19 09/02/20 History Allergies Allergy/AdvReac Type Severity Reaction Status Date / Time bupropion [From Wellbutrin] Allergy Rash/Hives/ Verified 01/14/19 08:02 itching heptitis C medication Allergy dry skin Uncoded 01/14/19 08:02 Physical Exam Vitals: Vital Signs Temp Pulse Resp BP Pulse Ox 09/02/20 12:57 97.4 F L 60 18 152/89 96 Intake and Output 09/01/20 09/02/20 09/02/20 22:59 06:59 14:59 Other: Weight 62.142 kg Physical Examinations : -Constitutiona : Cooperative , not in acute distress . -HEENT : nech : supple , no Lymphadenopathy , normal thyroid size . : eyes : no ptosis , no icterus, no photophobia . - neurologic : Cranial nerve II to XII intact , no focal neurological deffecit . -psychatric : alert , oriented X 3 , appropriate affect , intact judgment and insight . -Lymphatic : no Lymphadenopathy . - musculoskeltal : Cervical Spine motor stregnth in the deltoid and biceps, normal right side , normal Left side motor stregnth biceps and the wrist extensors normal right side ,normal left side . motor stregnth in the triceps muscle . normal Right side , normal Left side deep tendon reflexes normal at the biceps , normal at Brachioradialis , normal at triceps. cervical facet loading test: Positive Bilaterally Spurling test= positive Right , positiv e left. Neck distraction test= positive Right , positive left. Maureen sign= positive right, positive left . Shoulder exam= left shoulder full range of motion, within normal limits Right shoulder abduction and adduction on lateral rotation of the right shoulder associated with some pain Lumber spine moter stegnth lower extremities ,thigh and legs 5/5 Right side , 5/5 Left side Results Comments: MRI of the lumbar spine C3- 4 ,C4-5 ,C5-6 degenerative disc disease and facet arthropathy and foraminal stenosis Assessment and Plan Plan: Assessment and plan=1-cervical spondylosis with cervical facet arthropathy without myelopathy 2-cervical degenerative disc disease. 3-cervical foraminal stenosis. he will be scheduled to have diagnostic medial branch block cervical area C3, C4, C5 bilaterally x2 and possible RFA We have to hold Plavix for 7 days before the procedure Time with Patient: Greater than 30 PQRS Measure Charge Sheet Measure #130: Documentation of Current Meds in Medical Chart: Patient's medications documented in chart Measure #226: Tobacco Use: Screen & Cessation Intervention: Pt not a tobacco user Measure #111: Pneumonia Vaccination: Pneumococcal vaccine NOT administered or previously given Measure #47: Advance Care Plan: Advance care planning discussed & documented, pt chose/unable to give Measure #412: Opioid Treatment Agreement: No documentation of signed opioid treatment agreement Measure #408: Opioid Therapy Follow-up Evaluation: Patient had NO f/u eval minimum every 3 months during opioid therapy Measure #317: Preventitive Care & Scrn High Bld Press & F/U: Pre-hypertensive or hypertensive BP documented, pt will f/u with PCP Measure #128: Body Mass Index (BMI) Screening & Follow-up: BMI documented ABOVE normal parameters - f/u documented Measure #131: Pain Assessment & Follow-up: Pain positive & plan documented, Follow-up scheduled Measure #431: Unhealthy Alcohol Use Preventative Care & Scrn: Patient not luis enrique ntified as an unhealthy alcohol user PQRS Narrative: Smoking Status Former smoker Blood Pressure 152/89 Pain Intensity [Neck] 3 Scale Used Numeric (1 - 10) Hx Alcohol Use (MH) No Home Medications: Ambulatory Orders Metoprolol Tartrate 25 mg PO BID 12/05/17 Multivitamins, Thera [Multivitamin (formulary)] 1 tab PO DAILY 12/05/17 Sertraline [Zoloft] 50 mg PO HS 12/05/17 Aspirin [Adult Low Dose Aspirin EC] 81 mg PO DAILY 01/04/19 Atorvastatin [Lipitor] 10 mg PO HS 01/04/19 Clopidogrel [Plavix] 75 mg PO HS 01/04/19 amLODIPine [Norvasc] 5 mg PO HS 01/04/19 traZODone HCL 25 mg PO HS PRN MDD TAKE EITHER TRAZODONE OR AMBIE 01/04/19 Naproxen Sodium [Aleve] 220 mg PO DAILY 01/10/19 Omeprazole [PriLOSEC] 40 mg PO DAILY 01/10/19 lisinopriL 40 mg PO DAILY 01/10/19
== END | disposition home or self-care (01) ==
LOC: PNWHC3 12:52
PROVIDERS: ATTEND Specialist
DX: M47.812 Spondylosis without myelopathy or radiculopathy, cervical region (principal); M19.90 Unspecified osteoarthritis, unspecified site; E78.5 Hyperlipidemia, unspecified; Z79.1 Long term (current) use of non-steroidal anti-inflammatories (NSAID); Z79.82 Long term (current) use of aspirin; Z79.899 Other long term (current) drug therapy; Z87.891 Personal history of nicotine dependence; Z88.5 Allergy status to narcotic agent; Z88.8 Allergy status to other drugs, medicaments and biological substances; Z79.891 Long term (current) use of opiate analgesic; Z79.02 Long term (current) use of antithrombotics/antiplatelets
CPT/HCPCS: 99211

== ENCOUNTER 2020-09-18 12:51 | Day surgery (SDC) | payer OTHER ==
[2020-09-16 10:39] VITALS: BMI 32.1
[~2020-09-18 12:51] MED LIST changes: -DEXAMETHASONE SOD PHOSPHATE 10 MG/ML 1 ML VIAL IV ONE; -HEPARIN SODIUM,PORCINE 5,000 UNIT/ML 1 ML VIAL SQ ONE; +HYDROmorphone 0.5 MG/0.5 ML SYRINGE IVP PRN; -LIDOCAINE 1% 20 ML VIAL (10MG/ML) FOR IV START INTRADERMA PRN; -ceFAZolin IN SWFI 2 GM/20 ML SYRINGE IVP ONE
[2020-09-18 13:31] VITALS: TEMP 97.5
[2020-09-18] MEDS ORDERED: ROPIVACAINE 5MG/ML 20ML VIAL ONE (14:00)
[2020-09-18] MEDS ORDERED: fentaNYL (PF) 50 MCG/ML 2 ML AMP ONE (14:00)
[2020-09-18] MEDS ORDERED: methylPREDNISolone ACETATE 40 MG/ML 1 ML VIAL ONE (14:00)
[2020-09-18] MEDS ORDERED: MIDAZOLAM 2 MG/2 ML VIAL ONE (14:00)
--- NOTE | 2020-09-18 14:16 | P.PCN ---
Date of Procedure: 09/18/20 Procedure(s) Performed: PREOPERATIVE DIAGNOSIS: Cervical Spondylosis with Facet Arthropathy.without myelopathy POSTOPERATIVE DIAGNOSIS: Cervical Spondylosis Facet Arthropathy. Without myelopathy PROCEDURES: Diagnostic bilateral C3, C4 , C5 medial branch blocks, with fluoroscopic guidance (fluoroscopy images available in radiology department ) ( to target the facet joint at bilateral C3- 4 , C4- 5 , ) ANESTHESIA: Monitored anesthesia care as per anesthesia department. EBL: Minimal PROCEDURE INDICATION: The patient with neck pain secondary to cervical arthropathy unresponsive to more conservative treatments. PROCEDURE DESCRIPTION / TECHNIQUE: The patient was seen and identified in the preoperative area. Risks, benefits, complications, and alternatives were discussed with the patient, the patient agreed to proceed with the procedure and signed the consent. IV was started. Vital signs remained stable throughout the procedure. Patient was taken to the OR and time out was completed. The patient was placed in the prone position on the procedure table. A pillow was placed under the patients chest to increase the cervical interlaminar space. The cervical area was prepped and draped in the usual sterile fashion. Critical pause was taken. Vital signs were closely monitored during the procedure. Conscious sedation was used during the procedure to decrease patients anxiety. Using cross-table lateral fluoroscopy, the centroid of the trapezoid of right C3, C4 , C5 was identified, marked, and localized with 1% lidocaine 1 ml at each level for skin and Sub Q infiltrations . Subsequently, a 22 G 3 spinal needle was advanced guided by fluoroscopy to the centroid of the trapezoid of Right C3, C4 , C5, [place] tip position was confirmed at the centroid of the trapezoids of Right C3 , C4 , C5 with anteroposterior fluoroscopy. Subsequently, 2 ml of preservative-free Ropivacaine 0.5% mixed with Depo- Medrol 20 mg and half ml of the mixture was injected after negative aspiration for blood and CSF. [place] was then removed intact the same procedure was repeated at the left C3 , C4 , C5 , levels. COMPLICATIONS: No acute complications DISPOSITION / PLANS: The patient was placed in a supine position and transferred to the recovery area in a stable condition for observation and was discharged from the recovery room after meeting discharge criteria. Home discharge instructions given to the patient by the staff. The patient was reexamined prior to discharge. The patient will schedule a follow up in the clinic in 2-4 weeks.
[2020-09-18] MEDS ORDERED: IV FLUID CONTINUATION 900 ML IV ONE (14:22)
[2020-09-18 14:26] VITALS: RESP 16
--- NOTE | 2020-09-18 14:33 | FL ---
Fluoroscopy HISTORY: Pain 8 seconds fluoroscopy time supplied to the referring clinician. 2 intraoperative C-arm images docume nt the procedure. See dictated report from anesthesia.
[2020-09-18 14:36] VITALS: BP 136/68; PULSE 100
== END 2020-09-18 14:53 | disposition home or self-care (01) ==
LOC: ORPAIN 12:51
PROVIDERS: ATTEND Specialist
DX: G89.29 Other chronic pain (principal); M47.812 Spondylosis without myelopathy or radiculopathy, cervical region; M50.31 Other cervical disc degeneration, high cervical region; M48.02 Spinal stenosis, cervical region; J44.9 Chronic obstructive pulmonary disease, unspecified; K74.60 Unspecified cirrhosis of liver; F32.9 Major depressive disorder, single episode, unspecified; I25.119 Atherosclerotic heart disease of native coronary artery with unspecified angina pectoris; I10 Essential (primary) hypertension; E78.5 Hyperlipidemia, unspecified; K21.9 Gastro-esophageal reflux disease without esophagitis; Z87.820 Personal history of traumatic brain injury; Z86.19 Personal history of other infectious and parasitic diseases; Z98.890 Other specified postprocedural states; Z90.89 Acquired absence of other organs; Z98.52 Vasectomy status; Z87.898 Personal history of other specified conditions; Z87.891 Personal history of nicotine dependence; Z79.899 Other long term (current) drug therapy; Z79.82 Long term (current) use of aspirin; Z79.02 Long term (current) use of antithrombotics/antiplatelets; Z79.1 Long term (current) use of non-steroidal anti-inflammatories (NSAID); Z88.8 Allergy status to other drugs, medicaments and biological substances; Z95.5 Presence of coronary angioplasty implant and graft; Z82.49 Family history of ischemic heart disease and other diseases of the circulatory system
CPT/HCPCS: 64490; 64491; J2250; J1030; J3010; J2795

== ENCOUNTER 2020-11-13 08:57 | Day surgery (SDC) | payer OTHER ==
[2020-11-11 15:49] VITALS: BMI 32.1
[2020-11-13 09:22] VITALS: TEMP 97.3
[2020-11-13] MEDS ORDERED: LACTATED RINGERS 1,000 ML IV ONE (09:22)
[2020-11-13] MEDS ORDERED: DEXAMETHASONE SOD PHOSPHATE 10 MG/ML 1 ML VIAL ONE (09:36)
[2020-11-13] MEDS ORDERED: MIDAZOLAM 2 MG/2 ML VIAL ONE (09:36)
[2020-11-13] MEDS ORDERED: LIDOCAINE 4% (PF) 5 ML AMP ONE (09:36)
[2020-11-13] MEDS ORDERED: fentaNYL (PF) 50 MCG/ML 2 ML AMP ONE (09:36)
[2020-11-13] MEDS ORDERED: LIDOCAINE 1% INJ 10MG/ML (20 ML MDV) ONE (09:36)
--- NOTE | 2020-11-13 09:55 | P.PCN ---
Date of Procedure: 11/13/20 Description of Procedure: PREOPERATIVE DIAGNOSIS: Cervical Spondylosis with Facet Arthropathy.without myelopathy POSTOPERATIVE DIAGNOSIS: Cervical Spondylosis Facet Arthropathy. Without myelopathy PROCEDURES: Diagnostic bilateral C3, C4 , C5 medial branch blocks, with fluoroscopic guidance (fluoroscopy images available in radiology department ) ( to target the facet joint at bilateral C3- 4 , C4- 5 , ) ANESTHESIA: Monitored anesthesia care as per anesthesia department. EBL: Minimal PROCEDURE INDICATION: The patient with neck pain secondary to cervical arthropathy unresponsive to more conservative treatments. PROCEDURE DESCRIPTION / TECHNIQUE: The patient was seen and identified in the preoperative area. Risks, benefits, complications, and alternatives were discussed with the patient, the patient agreed to proceed with the procedure and signed the consent. IV was started. Vital signs remained stable throughout the procedure. Patient was taken to the OR and time out was completed. The patient was placed in the prone position on the procedure table. A pillow was placed under the patients chest to increase the cervical interlaminar space. The cervical area was prepped and draped in the usual sterile fashion. Critical pause was taken. V ital signs were closely monitored during the procedure. Conscious sedation was used during the procedure to decrease patients anxiety. Using anteriorposterior fluoroscopy, the waist of the vertebral body as the target of the right C3, C4 , C5 . They were identified, marked, and localized with 1% lidocaine 1 ml at each level for skin and Sub Q infiltrations . Subsequently, a 22 G 3 spinal needle was advanced guided by fluoroscopy to the centroid of the trapezoid of Right C3, C4 , C5, [place] tip position was confirmed at the waist f Right C3 , C4 , C5 with anteroposterior fluoroscopy. Subsequently, 2 ml of preservative-free Lidocaine 4% mixed with dexamethasone 10 mg and half ml of the mixture was injected after negative aspiration for blood and CSF. [place] was then removed intact the same procedure was repeated at the left C3 , C4 , C5 , levels. COMPLICATIONS: No acute complications DISPOSITION / PLANS: The patient was placed in a supine position and transferred to the recovery area in a stable condition for observation and was discharged from the recovery room after meeting discharge criteria. Home discharge instructions given to the patient by the staff. The patient was reexamined prior to discharge. The patient will schedule a follow up in the clinic in 2-4 weeks.
[2020-11-13] MEDS ORDERED: IV FLUID CONTINUATION 1,000 ML IV ONE (09:58)
[2020-11-13 10:13] VITALS: RESP 16
[2020-11-13 10:18] VITALS: BP 145/85; PULSE 60
--- NOTE | 2020-11-13 15:52 | FL ---
Fluoroscopy HISTORY: Pain 31 seconds fluoroscopy time supplied to the referring clinician. 2 intraoperative C-arm images docum ent the procedure. See dictated report from anesthesia.
== END 2020-11-13 10:20 | disposition home or self-care (01) ==
LOC: ORPAIN 08:57
PROVIDERS: ATTEND Anesthesiology
DX: M47.812 Spondylosis without myelopathy or radiculopathy, cervical region (principal); M54.81 Occipital neuralgia; I25.10 Atherosclerotic heart disease of native coronary artery without angina pectoris; I10 Essential (primary) hypertension; E78.5 Hyperlipidemia, unspecified; J44.9 Chronic obstructive pulmonary disease, unspecified; K74.60 Unspecified cirrhosis of liver; B19.20 Unspecified viral hepatitis C without hepatic coma; Z79.02 Long term (current) use of antithrombotics/antiplatelets; Z88.8 Allergy status to other drugs, medicaments and biological substances; Z97.2 Presence of dental prosthetic device (complete) (partial); Z88.6 Allergy status to analgesic agent; Z95.5 Presence of coronary angioplasty implant and graft
CPT/HCPCS: 64490; 64491; J2001 ×2; J2250; J1100; J3010

== ENCOUNTER → 2022-03-10 | Outpatient (CLI) | payer OTHER ==
--- NOTE | 2022-03-10 11:09 | US ---
EXAMINATION TYPE: US venous doppler duplex LE RT DATE OF EXAM: 03/10/2022 10:18 AM COMPARISON: NONE CLINICAL HISTORY: 61-year-old male Leg phlebitis I80.9. Edema SIDE PERFORMED: Right TECHNIQUE: The lower extremity deep venous system is examined utilizing real time linear array sonog claudia with graded compression, doppler sonography and color-flow sonography. FINDINGS: VESSELS IMAGED: Common Femoral Vein Deep Femoral Vein Greater Saphenous Vein * Femoral Vein Popliteal Vein Small Saphenous Vein * Proximal Calf Veins (* superficial vessels) Right Leg: Negative for DVT IMPRESSION: No evidence for DVT within the right lower extremity imaged from the groin to the upper calf.
== END | disposition home or self-care (01) ==
LOC: RADUSWWP 09:54
PROVIDERS: ATTEND Orthopaedic Surgery
DX: M17.11 Unilateral primary osteoarthritis, right knee (principal); M70.51 Other bursitis of knee, right knee; M19.071 Primary osteoarthritis, right ankle and foot; I80.9 Phlebitis and thrombophlebitis of unspecified site; M25.571 Pain in right ankle and joints of right foot

== ENCOUNTER 2022-07-10 16:49 | Emergency (ER) | payer OTHER ==
[2022-07-10 16:56] VITALS: TEMP 97.5
[2022-07-10] MEDS ORDERED: MORPHINE SULFATE 4 MG/ML SYRINGE IV STA (17:06)
[2022-07-10] MEDS ORDERED: PANTOPRAZOLE 40 MG/10 ML VIAL IVP STA (17:06)
[2022-07-10] MEDS ORDERED: SODIUM CHLORIDE 0.9% 1,000 ML IV STA ×2 (17:06→18:42)
--- NOTE | 2022-07-10 17:08 | ED ---
General Adult HPI - General Chief complaint: Abdominal Pain Stated complaint: Abd pain Time Seen by Provider: 07/10/22 16:58 Source: patient, RN notes reviewed Mode of arrival: ambulatory Limitations: no limitations - History of Present Illness Initial comments: Patient is a pleasant 62-year-old male presenting to the emergency department with concerns with abdominal discomfort. Onset of symptoms was 2 days ago. Patient feels his abdomen is distended. Patient states symptoms are worse after eating. Discomfort is more in the right side. No vomiting. No constipation or diarrhea. Patient has chronic loose stools that is unchanged. - Related Data Home Medications Medication Instructions Recorded Confirmed Metoprolol Tartrate 25 mg PO BID 12/05/17 03/30/22 Multivitamins, Thera [Multivitamin 1 tab PO DAILY 12/05/17 03/30/22 (formulary)] Sertraline [Zoloft] 50 mg PO HS 12/05/17 03/30/22 Omeprazole [PriLOSEC] 40 mg PO QAM 01/10/19 03/30/22 lisinopriL 40 mg PO HS 01/10/19 03/30/22 Atorvastatin [Lipitor] 80 mg PO HS 09/16/20 03/30/22 Previous Rx's Medication Instructions Recorded Metoclopramide HCl [Reglan] 10 mg PO Q6HR #20 tablet 07/10/22 Allergies Allergy/AdvReac Type Severity Reaction Status Date / Time bupropion [From Wellbutrin] Allergy Rash/Hives/ Verified 03/30/22 10:19 itching heptitis C medication AdvReac dry skin Uncoded 03/30/22 10:19 Review of Systems ROS Statement: Those systems with pertinent positive or pertinent negative responses have been documented in the HPI. ROS Other: All systems not noted in ROS Statement are negative. Constitutional: Denies: fever Eyes: Denies: eye pain ENT: Denies: ear pain Respiratory: Denies: cough Cardiovascular: Denies: chest pain Endocrine: Denies: fatigue Gastrointestinal: Reports: as per HPI, abdominal pain, nausea, vomiting Genitourinary: Denies: dysuria Musculoskeletal: Denies: back pain Skin: Denies: rash Neurological: Denies: weakness Past Medical History Past Medical History: Coronary Artery Disease (CAD), Chest Pain / Angina, COPD, Hypertension, Liver Disease, Osteoarthritis (OA) Additional Past Medical History / Comment(s): Cirrhosis of liver. past Hx Hep. C, finished tx, emphysema,hypoglycemia History of Any Multi-Drug Resistant Organisms: None Reported Past Surgical History: Cholecystectomy, Heart Catheterization With Stent, Hernia Repair, Orthopedic Surgery, Tonsillectomy Additional Past Surgical History / Comment(s): vasectomy, oral surgery, one cardiac stent Past Anesthesia/Blood Transfusion Reactions: Motion Sickness Additional Past Anesthesia/Blood Transfusion Reaction / Comment(s): got tim[place]ick on a cruise Date of Last Stent Placement:: 09/06/19 Past Psychological History: Depression Smoking Status: Former smoker - Past Family History Mother Family Medical History: Deep Vein Thrombosis (DVT) Additional Family Medical History / Comment(s): . General Exam Limitations: no limitations General appearance: alert, in no apparent distress Head exam: Present: normocephalic Eye exam: Present: normal appearance Neck exam: Present: normal inspection Respiratory exam: Present: normal lung sounds bilaterally Cardiovascular Exam: Present: regular rate, normal rhythm GI/Abdominal exam: Present: soft, distended (Abdomen does appear mildly distended), tenderness (Mild to moderate diffuse tenderness), normal bowel marilyn nds. Absent: guarding, rebound, rigid, pulsatile mass Extremities exam: Present: normal inspection. Absent: pedal edema, calf tenderness Back exam: Present: normal inspection Neurological exam: Present: alert Psychiatric exam: Present: normal affect, normal mood Skin exam: Present: normal color Course Vital Signs 07/10/22 07/10/22 16:51 18:52 Temperature 97.5 F L Pulse Rate 65 60 Respiratory 16 18 Rate Blood Pressure 150/74 146/88 O2 Sat by Pulse 95 100 Oximetry Medical Decision Making - Medical Decision Making Patient reevaluated and resting comfortably in bed. Patient does have history of hepatitis c. Findings consistent with this. Patient family updated on results and need for follow-up. Patient states he is feeling much better. - Lab Data Result diagrams: 07/10/22 17:25 07/10/22 17:25 Lab Results 07/10/22 07/10/22 07/10/22 Range/Units 17:25 17:25 17:25 WBC 5.2 (3.8-10.6) k/uL RBC 4.22 L (4.30-5.90) m/uL Hgb 12.4 L (13.0-17.5) gm/dL Hct 36.5 L (39.0-53.0) % MCV 86.5 (80.0-100.0) fL MCH 29.3 (25.0-35.0) pg MCHC 33.8 (31.0-37.0) g/dL RDW 14.8 (11.5-15.5) % Plt Count 88 L (150-450) k/uL MPV 10.3 Neutrophils % 61 % Lymphocytes % 28 % Monocytes % 7 % Eosinophils % 2 % Basophils % 0 % Neutrophils # 3.2 (1.3-7.7) k/uL Lymphocytes # 1.4 (1.0-4.8) k/uL Monocytes # 0.3 (0-1.0) k/uL Eosinophils # 0.1 (0-0.7) k/uL Basophils # 0.0 (0-0.2) k/uL PT 12.1 H (9.0-12.0) sec INR 1.1 (<1.2) APTT 26.3 (22.0-30.0) sec Sodium 139 (137-145) mmol/L Potassium 3.8 (3.5-5.1) mmol/L Chloride 108 H (98-107) mmol/L Carbon Dioxide 25 (22-30) mmol/L Anion Gap 6 mmol/L BUN 12 (9-20) mg/dL Creatinine 0.75 (0.66-1.25) mg/dL Est GFR (CKD-EPI)AfAm >90 (>60 ml/min/1.73 sqM) Est GFR (CKD-EPI)NonAf >90 (>60 ml/min/1.73 sqM) Glucose 97 (74-99) mg/dL Calcium 8.1 L (8.4-10.2) mg/dL Total Bilirubin 0.8 (0.2-1.3) mg/dL AST 54 (17-59) U/L ALT 35 (4-49) U/L Alkaline Phosphatase 81 (38-126) U/L Total Protein 7.0 (6.3-8.2) g/dL Albumin 4.0 (3.5-5.0) g/dL Amylase 57 (30-110) U/L Lipase 340 H (23-300) U/L Urine Color Urine Appearance (Clear) Urine pH (5.0-8.0) Ur Specific [place] (1.001-1.035) Urine Protein (Negative) Urine Glucose (UA) (Negative) Urine Ketones (Negative) Urine Blood (Negative) Urine Nitrite (Negative) Urine Bilirubin (Negative) Urine Urobilinogen (<2.0) mg/dL Ur Leukocyte Esterase (Negative) 07/10/22 Range/Units 18:23 WBC (3.8-10.6) k/uL RBC (4.30-5.90) m/uL Hgb (13.0-17.5) gm/dL Hct (39.0-53.0) % MCV (80.0-100.0) fL MCH (25.0-35.0) pg MCHC (31.0-37.0) g/dL RDW (11.5-15.5) % Plt Count (150-450) k/uL MPV Neutrophils % % Lymphocytes % % Monocytes % % Eosinophils % % Basophils % % Neutrophils # (1.3-7.7) k/uL Lymphocytes # (1.0-4.8) k/uL Monocytes # (0-1.0) k/uL Eosinophils # (0-0.7) k/uL Basophils # (0-0.2) k/uL PT (9.0-12.0) sec INR (<1.2) APTT (22.0-30.0) sec Sodium (137-145) mmol/L Potassium (3.5-5.1) mmol/L Chloride (98-107) mmol/L Carbon Dioxide (22-30) mmol/L Anion Gap mmol/L BUN (9-20) mg/dL Creatinine (0.66-1.25) mg/dL Est GFR (CKD-EPI)AfAm (>60 ml/min/1.73 sqM) Est GFR (CKD-EPI)NonAf (>60 ml/min/1.73 sqM) Glucose (74-99) mg/dL Calcium (8.4-10.2) mg/dL Total Bilirubin (0.2-1.3) mg/dL AST (17-59) U/L ALT (4-49) U/L Alkaline Phosphatase (38-126) U/L Total Protein (6.3-8.2) g/dL Albumin (3.5-5.0) g/dL Amylase (30-110) U/L Lipase (23-300) U/L Urine Color Light Yellow Urine Appearance Clear (Clear) Urine pH 6.5 (5.0-8.0) Ur Specific [place] 1.037 H (1.001-1.035) Urine Protein Negative (Negative) Urine Glucose (UA) Negative (Negative) Urine Ketones Negative (Negative) Urine Blood Negative (Negative) Urine Nitrite Negative (Negative) Urine Bilirubin Negative (Negative) Urine Urobilinogen <2.0 (<2.0) mg/dL Ur Leukocyte Esterase Negative (Negative) - Radiology Data Radiology results: report reviewed (Computed tomography scan shows possible portal hypertension, splenomegaly w varices) Disposition Clinical Impression: Abdominal pain Disposition: HOME SELF-CARE Condition: Stable Instructions (If sedation given, give patient instructions): Abdominal Pain (ED) Additional Instructions: Please follow-up with primary care physician on a couple days for recheck. Return for increased pain, vomiting, not tolerating oral intake, worsening symptoms, fever, or other concerns. Please also follow-up with Gastroenterology, number provided. Prescription sent to pharmacy. Prescriptions: Metoclopramide HCl [Reglan] 10 mg PO Q6HR #20 tablet Is patient prescribed a controlled substance at d/c from ED?: No Referrals: Jennifer Camacho DO [Primary Care Provider] - 1-2 days Preeti Loomis MD [STAFF PHYSICIAN] - 1-2 days Time of Disposition: 19:15
[2022-07-10 17:46] LABS: Basophils % (A) 0 %; Eosinophils # (A) 0.1 k/uL (0-0.7); Eosinophils % (A) 2 %; HCT 36.5 % (39.0-53.0); HGB 12.4 gm/dL (13.0-17.5); Lymphocytes # (A) 1.4 k/uL (1.0-4.8); Lymphocytes % (A) 28 %; MCH 29.3 pg (25.0-35.0); MCHC 33.8 g/dL (31.0-37.0); MCV 86.5 fL (80.0-100.0); Mean Platelet Volume 10.3; Monocytes # (A) 0.3 k/uL (0-1.0); Monocytes % (A) 7 %; Neutrophils # (A) 3.2 k/uL (1.3-7.7); Neutrophils % (A) 61 %; Platelet Count 88 k/uL (150-450); RBC 4.22 m/uL (4.30-5.90); RDW 14.8 % (11.5-15.5); WBC 5.2 k/uL (3.8-10.6)
[2022-07-10 17:49] LABS: ALT 35 U/L (4-49); AST 54 U/L (17-59); African American GFR (CKD) >90 (>60 ml/min/1.73 sqM); Alkaline Phosphatase 81 U/L (38-126); Amylase 57 U/L (30-110); Anion Gap 6 mmol/L; Blood Urea Nitrogen 12 mg/dL (9-20); Calcium 8.1 mg/dL (8.4-10.2); Carbon Dioxide 25 mmol/L (22-30); Chloride 108 mmol/L (98-107); Glucose 97 mg/dL (74-99); Lipase 340 U/L (23-300); Non-African American GFR(CKD) >90 (>60 ml/min/1.73 sqM); Potassium 3.8 mmol/L (3.5-5.1); Sodium 139 mmol/L (137-145); Total Bilirubin 0.8 mg/dL (0.2-1.3)
[2022-07-10 18:04] LABS: INR 1.1 (<1.2); Partial Thromboplastin Time 26.3 sec (22.0-30.0); Prothrombin Time 12.1 sec (9.0-12.0)
--- NOTE | 2022-07-10 18:27 | CT ---
EXAMINATION TYPE: CT abdomen pelvis w con DATE OF EXAM: 07/10/2022 COMPARISON: None HISTORY: RIGHT SIDED ABD PAIN CT DLP: 2175 mGycm Automated exposure control for dose reduction was used. CONTRAST: Performed with IV Contrast, patient injected with 100ML mL of Isovue 300. Images obtained from the diaphragm to the floor the pelvis with the IV contrast. Lung bases are clear. No pleural effusion. Heart size is normal. No pericardial effusion. Spleen is e nlarged and measures 14.5 cm. Stomach is intact. No pancreatic mass. Liver shows no focal defect. The bile duct are not dilated. Gallbladder appears absent. There is heterogeneity in the liver density. No discrete mass. There is no adrenal mass. There are multiple varicose veins at the splenic hilum. Kidneys show satisfactory contrast opacification. No hydronephrosis. Ureters are not dilated. No retr operitoneal adenopathy. Bladder distends smoothly. No inguinal hernia. No free fluid in the pelvis. N o evidence of a pelvic mass. Appendix is posterior and appears normal. The lumbar spine is intact. No compression fracture. Posterior elements are intact. Bony pelvis is in tact. The hip joints are intact. There is no mesenteric edema. No ascites or free air. No sign of a bowel obstruction. There are a few sigmoid diverticula. No diverticulitis IMPRESSION: Splenomegaly with varices that are suggestive of portal venous hypertension. Normal appendix. Minimal heterogeneity in the liver density that could be cirrhosis.
[2022-07-10 18:53] VITALS: BP 146/88; PULSE 60; RESP 18
[2022-07-10 18:53] LABS: Appearance,Urine Clear (Clear); Bilirubin,Urine Negative (Negative); Blood,Urine Negative (Negative); Color,Urine Light Yellow; Glucose,Urine (UA) Negative (Negative); Ketones,Urine Negative (Negative); Leukocyte Esterase,Urine Negative (Negative); Nitrite,Urine Negative (Negative); PH, Urine 6.5 (5.0-8.0); Protein,Urine Negative (Negative); Specific Gravity,Urine 1.037 (1.001-1.035); Urobilinogen,Urine <2.0 mg/dL (<2.0)
== END 2022-07-10 20:05 | disposition home or self-care (01) ==
LOC: EC 16:49
DX: R10.9 Unspecified abdominal pain (principal); R16.1 Splenomegaly, not elsewhere classified; I11.9 Hypertensive heart disease without heart failure; I25.10 Atherosclerotic heart disease of native coronary artery without angina pectoris; J44.9 Chronic obstructive pulmonary disease, unspecified; F32.A Depression, unspecified; M19.90 Unspecified osteoarthritis, unspecified site; Z87.891 Personal history of nicotine dependence; Z88.8 Allergy status to other drugs, medicaments and biological substances; Z88.7 Allergy status to serum and vaccine; Z79.899 Other long term (current) drug therapy; Z90.49 Acquired absence of other specified parts of digestive tract
CPT/HCPCS: 36415; 80053; 82150; 83690; 85025; 85610; 85730; 81003; 74177; 99284; 96374; 96375; 96361 ×3; J2270; C9113; Q9967

== ENCOUNTER → 2022-10-27 | Outpatient (CLI) | payer MEDICARE, OTHER ==
--- NOTE | 2022-10-27 12:51 | MR ---
EXAMINATION TYPE: MR knee RT wo con DATE OF EXAM: 10/27/2022 COMPARISON: Outside right knee x-ray October 25, 2022 HISTORY: Right knee pain locking and swelling without injury with history of arthritis per patient. TECHNIQUE: Multiplanar, multisequence images of the knee is performed without IV contrast. FINDINGS: MEDIAL MENISCUS: Slight medial extrusion medial meniscus on coronal images. Oblique signal posterior horn extends to inferior articular surface. LATERAL MENISCUS: Anterior and posterior horns are intact without tear. CRUCIATE LIGAMENTS: The anterior and posterior cruciate ligaments are intact and unremarkable. COLLATERAL LIGAMENTS: The medial collateral ligament and lateral collateral ligament complex are inta ct and unremarkable. EXTENSOR MECHANISM: Visualized quadriceps and patellar tendons are intact. EFFUSION: No significant suprapatellar joint effusion. POPLITEAL CYST: Tiny popliteal/bush cyst. TRICOMPARTMENT SPACES: Mild to moderate narrowing patellofemoral compartment. Mild narrowing and spur ring medial and lateral tibiofemoral compartments. CARTILAGE: Tricompartment articular cartilage is fairly well preserved. BONE MARROW SIGNAL: No focal abnormal marrow signal is appreciated. OTHER: No additional significant abnormality is appreciated. IMPRESSION: 1. Full-thickness tear posterior horn medial meniscus. 2. Mild to borderline moderate tricompartment degenerative changes as detailed above. 3. Tiny popliteal cyst.
== END | disposition home or self-care (01) ==
LOC: RADMRIMAIN 10:35
PROVIDERS: ATTEND Orthopaedic Surgery
DX: M23.221 Derangement of posterior horn of medial meniscus due to old tear or injury, right knee (principal); M71.21 Synovial cyst of popliteal space [Baker], right knee

== ENCOUNTER → 2022-12-01 | Outpatient (CLI) | payer MEDICARE, OTHER ==
[2022-12-01 16:18] LABS: Anion Gap 11.6 mmol/L (10.00-18.00); Carbon Dioxide 21.4 mmol/L (20.0-27.5); Potassium 3.9 mmol/L (3.5-5.5)
[2022-12-01 16:56] LABS: Basophils # (A) 0.06 X 10*3/uL (0.00-0.10); Basophils % (A) 1.1 %; Eosinophils # (A) 0.14 X 10*3/uL (0.04-0.35); Eosinophils % (A) 2.5 %; HCT 39.9 % (39.6-50.0); HGB 12.8 g/dL (13.0-17.0); Immature Grans, Automated 0.2 %; Lymphocytes # (A) 1.41 X 10*3/uL (0.90-5.00); Lymphocytes % (A) 25.1 %; MCH 28.9 pg (27.0-32.0); MCHC 32.1 g/dL (32.0-37.0); MCV 90.1 fL (80.0-97.0); Mean Platelet Volume 12.5 fL (9.5-12.2); Monocytes # (A) 0.51 X 10*3/uL (0.20-1.00); Monocytes % (A) 9.1 %; NRBC Per 100 WBC 0 /100 WBCS (0.0-0.0); Neutrophils # (A) 3.48 X 10*3/uL (1.80-7.70); Platelet Count 89 X 10*3/uL (140-440); RBC 4.43 X 10*6/uL (4.40-5.60); RBC Morphology NORMAL; RDW 17.8 % (11.5-14.5); WBC 5.61 X 10*3/uL (4.50-10.00)
== END | disposition home or self-care (01) ==
LOC: LABWHC1 10:00
PROVIDERS: ATTEND Orthopaedic Surgery
DX: Z01.818 Encounter for other preprocedural examination (principal); M23.91 Unspecified internal derangement of right knee
CPT/HCPCS: 36415; 80051; 85025; 93005

== ENCOUNTER 2022-12-15 09:03 | Day surgery (SDC) | payer MEDICARE, OTHER ==
[2022-12-12 09:29] VITALS: BMI 36.6
--- NOTE | 2022-12-14 17:50 | HP ---
HISTORY AND PHYSICAL DATE OF SURGERY: 12/15/2022. HISTORY OF PRESENT ILLNESS: Randolph Uribe is a 62-year-old gentleman seen with progressive right knee pain. We discussed options for treatment. He elected to proceed with right knee arthroscopy. Consent regarding the procedure was obtained. PAST MEDICAL HISTORY: Hypertension, hyperlipidemia, gastroesophageal reflux disease. PAST SURGICAL HISTORY: Cardiac catheterization with stent insertion. DAILY MEDICATIONS: 1. Atorvastatin. 2. Metoprolol. 3. Omeprazole. 4. Sertraline. 5. Aleve. ALLERGIES: Wellbutrin. SOCIAL HISTORY: Denies tobacco use. PHYSICAL EVALUATION OF THE RIGHT KNEE: His range of motion is negative 3 to 130 degrees. Moderate effusion. Tenderness, medial joint line. Positive medial Antoine's. Ligaments stable. Hip rotation without pain. Distal neurovascular exam is intact. RADIOGRAPHS: Radiographs of the right knee revealed mild osteoarthritis. MRI, right knee revealed medial meniscal tear. IMPRESSION: 1. Internal derangement of right knee with medial meniscal tear. 2. Hypertension. 3. Hyperlipidemia. PLAN: Right knee arthroscopy with partial medial meniscectomy and debridement. MMODL / IJN: [id number] /
[~2022-12-15 09:03] MED LIST changes: +DEXAMETHASONE SOD PHOSPHATE 4 MG/ML 1 ML VIAL IV ONE; -MIDAZOLAM 2 MG/2 ML VIAL IV PRN; +ONDANSETRON 4 MG/2 ML VIAL IVP ONE; +ceFAZolin 3 GM in SODIUM CHLORIDE 0.9% 100 ML IVPB PRN
[2022-12-15] MEDS ORDERED: LACTATED RINGERS 1,000 ML IV ONE (09:18)
[2022-12-15 09:49] LABS: Glucose,Whole Blood 103 mg/dL (70-110)
[2022-12-15] MEDS ORDERED: fentaNYL (PF) 50 MCG/ML 2 ML AMP ONE (09:57)
[2022-12-15] MEDS ORDERED: LIDOCAINE 2% INJ 20 MG/ML (2 ML VIAL) ONE (09:57)
[2022-12-15] MEDS ORDERED: PROPOFOL 10 MG/ML 20 ML VIAL IV ONE (09:57)
[2022-12-15] MEDS ORDERED: KETOROLAC 15 MG/ML 1 ML VIAL ONE (09:57)
[2022-12-15] MEDS ORDERED: MIDAZOLAM 2 MG/2 ML VIAL ONE (09:57)
[2022-12-15] MEDS ORDERED: SUCCINYLCHOLINE CHLORIDE 200 MG/10 ML VIAL IV ONE (09:57)
[2022-12-15 10:01] VITALS: RESP 16
[2022-12-15] MEDS ORDERED: BUPIVACAINE (PF) 0.25% 30 ML VIAL SQ ONE ×2 (10:24→10:34)
--- NOTE | 2022-12-15 10:47 | P.OP ---
Date of Procedure: 12/15/22 Preoperative Diagnosis: Internal derangement right knee Postoperative Diagnosis: 1. Tear medial meniscus right knee 2. Grade 4 chondromalacia medial femoral condyle right knee 3. Reactive synovitis medial, lateral and suprapatellar compartments right knee Procedure(s) Performed: 1. Arthroscopic partial medial and lateral meniscectomy right knee 2. Arthroscopic microfracture medial femoral condyle right knee 3. Arthroscopic partial synovectomy medial, lateral and suprapatellar compartments right knee Anesthesia: HILDAA, local Surgeon: Eleno Doe Estimated Blood Loss (ml): 8 Pathology: none sent Condition: stable Disposition: PACU Indications for Procedure: 62-year-old gentleman seen with progressive right knee pain. After treatment options were discussed, he elected to proceed with arthroscopy. Operative Findings: See description of procedure Description of Procedure: Patient was taken to the operative suite. Patient underwent a general anesthetic by the department of anesthesia. Patient was given preoperative antibiotics. The right lower extremity was placed in a well-padded arthroscopic leg morejon. The right leg was prepped and draped in the normal sterile orthopedic fashion. A lateral parapatellar and suprapatellar incision was made. Trochars were inserted. Arthroscopy was initiated. Suprapatellar pouch revealed diffuse thick reactive synovitis. There were grade 1 chondromalacia changes of the patella without tears.. The patellofemoral joint appeared to articulate congruently. The scope was guided into the medial gutter. No loose bodies or plica were identified. The scope was then guided into the medial compartment. A medial parapatellar incision was made. Trocar inserted followed by probe. Was a complex tear involving the posterior horn medial meniscus. There were grade 3/4 chondromalacia changes of the medial femoral condyle with some diffuse osteochondral tears present. There was some thick reactive synovitis anteriorly. I performed a partial medial meniscectomy getting down to stable meniscal tissue I performed a chondroplasty of the medial femoral condyle getting down to stable osteochondral tissue. I performed a partial synovectomy decompressing the reactive synovitis anteriorly. I did note area of grade 4 chondromalacia exposed bone weightbearing surface medial femoral condyle measuring approximately 0.8 cm with good peripheral osteochondral tissue. I now introduced a microfracture awl and performed a microfracture to the area of exposed bone penetrating the bone with resultant bleeding at the microfracture site. The residual meniscus was stable. The residual osteochondral surface was stable. There was good decompression of the synovitis. Scope and probe were then guided into the intercondylar notch. Cruciates were identified, probed and found to be stable. The scope and probe were then guided into lateral compartment. Lateral meniscus was probed and was found to be stable. There was no significant chondromalacia involving the lateral compartment. There was some reactive synovitis anteriorly. I introduced a motorized shaver and performed a partial synovectomy. Shaver was now removed. There was good decompression of the synovitis. The scope was in guided back into the suprapatellar compartment. I introduced a motorized shaver into the suprapatellar compartment. I debrided some piecemeal fragments of meniscus that I encountered. I performed a partial synovectomy. Shaver was now removed. There was good decompression of the synovitis. I now took one more look around the entire knee, no residual debris. Instruments were now removed from the joint. The joint was infiltrated with .25% Marcaine. Steri-Strips were applied to the portal sites. Sterile dressings were applied. The patient was placed into a BELLA hose. No tourniquet was utilized. The patient was awakened, transferred to a bed and taken to recovery stable satisfactory condition.
[2022-12-15 10:48] VITALS: TEMP 97.2
[2022-12-15 12:54] VITALS: BP 147/79; PULSE 63
== END 2022-12-15 12:54 | disposition home or self-care (01) ==
LOC: OR 09:03
PROVIDERS: ATTEND Orthopaedic Surgery
DX: M23.303 Other meniscus derangements, unspecified medial meniscus, right knee (principal); M17.11 Unilateral primary osteoarthritis, right knee; M94.261 Chondromalacia, right knee; M65.861 Other synovitis and tenosynovitis, right lower leg; I10 Essential (primary) hypertension; K21.9 Gastro-esophageal reflux disease without esophagitis; Z79.899 Other long term (current) drug therapy
CPT/HCPCS: 86850; 86900; 86901

== ENCOUNTER 2022-12-21 07:38 | Emergency (ER) | payer MEDICARE, OTHER ==
--- NOTE | 2022-12-21 07:55 | ED ---
General Adult HPI - General Chief complaint: Extremity Problem,Nontraumatic Stated complaint: Right Leg (knee surgery 12/15) pain/swelling Time Seen by Provider: 12/21/22 07:43 Source: patient, RN notes reviewed, old records reviewed Mode of arrival: wheelchair Limitations: no limitations - History of Present Illness Initial comments: 62-year-old male presenting with pain and swelling to the right knee and calf. Patient is 6 days postop knee arthroscopic procedure for meniscal tear. Patient denies chest pain or dyspnea. Denies fever. He's been taking Montandon with only minimal relief of his pain. He's had increased swelling and ecchymosis to the knee and calf. Patient has pain with range of motion and pain with weightbearing. - Related Data Home Medications Medication Instructions Recorded Confirmed Metoprolol Tartrate 25 mg PO BID 12/05/17 12/15/22 Multivitamins, Thera [Multivitamin 1 tab PO DAILY 12/05/17 12/15/22 (formulary)] Sertraline [Zoloft] 50 mg PO HS 12/05/17 12/15/22 Omeprazole [PriLOSEC] 40 mg PO QAM 01/10/19 12/15/22 lisinopriL 40 mg PO HS 01/10/19 12/15/22 Atorvastatin [Lipitor] 80 mg PO HS 09/16/20 12/15/22 Zolpidem [Ambien] 10 mg PO HS PRN 12/12/22 12/15/22 Previous Rx's Medication Instructions Recorded HYDROcodone/APAP 5-325MG [Montandon 1 tab PO Q6HR PRN #12 tab 12/15/22 5-325] Allergies Allergy/AdvReac Type Severity Reaction Status Date / Time bupropion [From Wellbutrin] Allergy Rash/Hives/ Verified 12/21/22 07:45 itching heptitis C medication AdvReac dry skin, Uncoded 12/21/22 07:45 RASH Review of Systems ROS Statement: Those systems with pertinent positive or pertinent negative responses have been documented in the HPI. ROS Other: All systems not noted in ROS Statement are negative. Past Medical History Past Medical History: Coronary Artery Disease (CAD), Chest Pain / Angina, COPD, Hypertension, Liver Disease, Osteoarthritis (OA) Additional Past Medical History / Comment(s): Cirrhosis of liver. past Hx Hep. C, finished tx, emphysema,hypoglycemia History of Any Multi-Drug Resistant Organisms: None Reported Past Surgical History: Cholecystectomy, Heart Catheterization With Stent, Hernia Repair, Orthopedic Surgery, Tonsillectomy Additional Past Surgical History / Comment(s): vasectomy, oral surgery, one cardiac stent Past Anesthesia/Blood Transfusion Reactions: Motion Sickness Additional Past Anesthesia/Blood Transfusion Reaction / Comment(s): got [place]as on a cruise Date of Last Stent Placement:: 09/06/19 Past Psychological History: Depression Smoking Status: Former smoker Past Alcohol Use History: None Reported Past Drug Use History: None Reported - Past Family History Mother Family Medical History: Deep Vein Thrombosis (DVT) Additional Family Medical History / Comment(s): . General Exam Limitations: no limitations General appearance: alert, in no apparent distress Head exam: Present: atraumatic, normocephalic Eye exam: Present: normal appearance, PERRL ENT exam: Present: normal exam Neck exam: Present: normal inspection. Absent: tenderness, meningismus Respiratory exam: Present: normal lung sounds bilaterally. Absent: respiratory distress, wheezes Cardiovascular Exam: Present: regular rate, normal rhythm GI/Abdominal exam: Present: soft. Absent: distended, tenderness Extremities exam: Present: pedal edema, joint swelling, calf tenderness, other (Ecchymosis in the popliteal fossa, the calf is tense with tenderness to palpation, the incision is non-erythematous, no drainage) Neurological exam: Present: alert, oriented X3, CN II-XII intact. Absent: motor sensory deficit Skin exam: Present: warm, dry Course Vital Signs 12/21/22 07:42 Temperature 97.4 F L Pulse Rate 81 Respiratory 20 Rate Blood Pressure 138/84 O2 Sat by Pulse 95 Oximetry Medical Decision Making - Medical Decision Making Was pt. sent in by a medical professional or institution (, PA, BEAM DYER OPERATOR, urgent care, hospital, or longterm...) When possible be specific @ -No Did you speak to anyone other than the patient for history (EMS, parent, family, police, friend...)? What history was obtained from this source @ -No Did you review nursing and triage notes (agree or disagree)? Why? @ -I reviewed and agree with nursing and triage notes Were old charts reviewed (outside hosp., previous admission, EMS record, old EKG, old radiological studies, urgent care reports/EKG's, longterm records)? Report findings @ -Surgical documentation Differential Diagnosis (chest pain, altered mental status, abdominal pain women, abdominal pain men, vaginal bleeding, weakness, fever, dyspnea, syncope, headache, dizziness, GI bleed, back pain, seizure, CVA, palpatations, mental health, musculoskeletal)? @ -[Postoperative infection, DVT, normal healing EKG interpreted by me (3pts min.). @ -As above X-rays interpreted by me (1pt min.). @ -None done CT interpreted by me (1pt min.). @ -None done U/S interpreted by me (1pt. min.). @ Performed of the right leg, negative for DVT What testing was considered but not performed or refused? (CT, X-rays, U/S, labs)? Why? @ -None What meds were considered but not given or refused? Why? @ -None Did you discuss the management of the patient with other professionals (professionals i.e. , PA, BEAM DYER OPERATOR, lab, RT, psych nurse, administrator social welfare, ladle repairer, teacher, tactical response group officer, telephonic case manager)? Give summary @ -No Was smoking cessation discussed for >3mins.? @ -No Was critical care preformed (if so, how long)? @ -No Were there social determinants of health that impacted care today? How? (Homelessness, low income, unemployed, alcoholism, drug addiction, transportation, low edu. Level, literacy, decrease access to med. care, residential, rehab)? @ -No Was there de-escalation of care discussed even if they declined (Discuss DNR or withdrawal of care, Hospice)? DNR status @ -No What co-morbidities impacted this encounter? (DM, HTN, Smoking, COPD, CAD, Cancer, CVA, ARF, Chemo, Hep., AIDS, mental health diagnosis, sleep apnea, morbid obesity)? @ -None Was patient admitted / discharged? Hospital course, mention meds given and route, prescriptions, significant lab abnormalities, going to OR and other pertinent info. @ 62-year-old male presenting with pain and swelling postoperative right knee arthroscopic repair of a meniscus. Patient does have lower extremity swelling from the knee to the ankle. There is ecchymosis behind the right knee. The calf is tense and tender. There is no erythema, no significant warmth to the knee itself. Repeat ultrasound study performed which was negative. Patient is afebrile and otherwise well-appearing. I did discuss case with Marce mattson for advanced orth[facility], recommends close outpatient follow-up. Patient will contact the office today. Undiagnosed new problem with uncertain prognosis? @ -No Drug Therapy requiring intensive monitoring for toxicity (Heparin, Nitro, Insulin, Cardizem)? @ -No Were any procedures done? @ -No Diagnosis/symptom? @ Status post knee arthroscopy with postoperative pain and swelling Acute, or Chronic, or Acute on Chronic? @ Acute Disposition Clinical Impression: Post-op pain, S/P arthroscopic knee surgery Disposition: HOME SELF-CARE Condition: Good Instructions (If sedation given, give patient instructions): Knee Arthroscopy (DC) Is patient prescribed a controlled substance at d/c from ED?: No Referrals: Anny Jerez PAC [Family Provider] - 1-2 days Eleno Doe DO [Doctor of Osteopathic Medicine] - 1-2 days Time of Disposition: 08:53
--- NOTE | 2022-12-21 08:40 | US ---
EXAMINATION TYPE: US venous doppler duplex LE RT DATE OF EXAM: 12/21/2022 8:20 AM COMPARISON: Right lower extremity venous ultrasound 12/19/2022 CLINICAL INDICATION: Male, 62 years old with history of pain/swelling; scope of rt knee 6 days ago an d now swelling with calf pain SIDE PERFORMED: Right TECHNIQUE: The lower extremity deep venous system is examined utilizing real time linear array sonog claudia with graded compression, doppler sonography and color-flow sonography. VESSELS IMAGED: Common Femoral Vein Deep Femoral Vein Greater Saphenous Vein * Femoral Vein Popliteal Vein Small Saphenous Vein * Proximal Calf Veins (* superficial vessels) Grayscale, color doppler, spectral doppler imaging performed of the deep veins of the right lower ext remity. There is normal flow, compressibility, vascular waveforms. Right Leg: Negative for DVT IMPRESSION: No deep venous thrombosis of the right lower extremity.
[2022-12-21] MEDS ORDERED: KETOROLAC 15 MG/ML 1 ML VIAL IM STA (09:02)
[2022-12-21 09:28] VITALS: BP 134/77; PULSE 73; RESP 19; TEMP 97.5
== END 2022-12-21 09:28 | disposition home or self-care (01) ==
LOC: EC 07:38
DX: G89.18 Other acute postprocedural pain (principal); Z53.33 Arthroscopic surgical procedure converted to open procedure; I25.10 Atherosclerotic heart disease of native coronary artery without angina pectoris; J44.9 Chronic obstructive pulmonary disease, unspecified; I10 Essential (primary) hypertension; M19.90 Unspecified osteoarthritis, unspecified site; F32.A Depression, unspecified; Z87.891 Personal history of nicotine dependence; Z79.1 Long term (current) use of non-steroidal anti-inflammatories (NSAID); Z79.899 Other long term (current) drug therapy; Z88.8 Allergy status to other drugs, medicaments and biological substances
CPT/HCPCS: 99284 ×2; 96372 ×2; 93971; J1885

== ENCOUNTER 2022-12-26 18:36 | Emergency (ER) | payer MEDICARE, OTHER ==
[2022-12-26] MEDS ORDERED: HYDROmorphone 1 MG/ML 1 ML SYRINGE IM STA ×2 (19:18→22:09)
[2022-12-26] MEDS ORDERED: KETOROLAC 15 MG/ML 1 ML VIAL IM STA (19:18)
--- NOTE | 2022-12-26 19:30 | ED ---
Extremity Problem HPI - General Chief complaint: Extremity Problem,Nontraumatic Stated complaint: Right Foot Swelling-Post Surgery Time Seen by Provider: 12/26/22 19:08 Source: patient, RN notes reviewed Mode of arrival: ambulatory Limitations: no limitations - History of Present Illness Initial comments: This is a 62-year-old male who presents to the emergency department for right lower extremity pain and swelling. He had an arthroscopic meniscus repair with Dr. Doe on 12/15. He states that this went well and he had been doing okay. However, he then developed increased pain, swelling, and bruising. He came to the emergency department on 12/21. He had an ultrasound that was found to be negative for signs of a DVT or other acute etiology. He followed up with orthopedics, who advised that this is to be expected. However, he states that over the last 1-2 days, he has noticed redness and increasing pain and swelling. He did just take his last [place] this morning. He is also taking this with Aleve. He has a follow up appt with orthopedics in 4 days. Denies any fevers, chills, sore throat, cough, dyspnea, chest pain, palpit ations, abdominal pain, nausea, vomiting, diarrhea, back pain, or headaches. MD Complaint: extremity pain, extremity swelling Location: right, lower extremity - Related Data Home Medications Medication Instructions Recorded Confirmed RX: Metoprolol Tartrate 25 mg PO BID 12/05/17 12/15/22 RX: Multivitamins, Thera 1 tab PO DAILY 12/05/17 12/15/22 [Multivitamin (formulary)] RX: Sertraline [Zoloft] 50 mg PO HS 12/05/17 12/15/22 Omeprazole [PriLOSEC] 40 mg PO QAM 01/10/19 12/15/22 RX: lisinopriL 40 mg PO HS 01/10/19 12/15/22 Atorvastatin [Lipitor] 80 mg PO HS 09/16/20 12/15/22 Zolpidem [Ambien] 10 mg PO HS PRN 12/12/22 12/15/22 Previous Rx's Medication Instructions Recorded HYDROcodone/APAP 5-325MG [[place] 1 tab PO Q6HR PRN #12 tab 12/15/22 5-325] Cephalexin [Keflex] 500 mg PO Q6HR 5 Days #20 cap 12/26/22 HYDROcodone/APAP 7.5-325MG [[place] 1 tab PO Q6HR PRN 3 Days #12 tab 12/26/22 7.5-325] Ketorolac [Toradol] 10 mg PO Q6HR PRN #12 tab 12/26/22 Allergies Allergy/AdvReac Type Severity Reaction Status Date / Time bupropion [From Wellbutrin] Allergy Rash/Hives/ Verified 12/26/22 18:58 itching heptitis C medication AdvReac dry skin, Uncoded 12/26/22 18:58 RASH Review of Systems ROS Statement: Those systems with pertinent positive or pertinent negative responses have been documented in the HPI. ROS Other: All systems not noted in ROS Statement are negative. Past Medical History Past Medical History: Coronary Artery Disease (CAD), Chest Pain / Angina, COPD, Hypertension, Liver Disease, Osteoarthritis (OA) Additional Past Medical History / Comment(s): Cirrhosis of liver. past Hx Hep. C, finished tx, emphysema,hypoglycemia History of Any Multi-Drug Resistant Organisms: None Reported Past Surgical History: Cholecystectomy, Heart Catheterization With Stent, Hernia Repair, Orthopedic Surgery, Tonsillectomy Additional Past Surgical History / Comment(s): vasectomy, oral surgery, one cardiac stent Past Anesthesia/Blood Transfusion Reactions: Motion Sickness Additional Past Anesthesia/Blood Transfusion Reaction / Comment(s): [place] a [place] Date of Last Stent Placement:: 09/06/19 Past Psychological History: Depression Smoking Status: Former smoker Past Alcohol Use History: None Reported Past Drug Use History: None Reported - Past Family History Mother Family Medical History: Deep Vein Thrombosis (DVT) Additional Family Medical History / Comment(s): . General Exam Limitations: no limitations General appearance: alert, in no apparent distress Head exam: Present: atraumatic, normocephalic, normal inspection Respiratory exam: Present: normal lung sounds bilaterally. Absent: respiratory distress, wheezes, rales, rhonchi, stridor Cardiovascular Exam: Present: regular rate, normal rhythm, normal heart sounds. Absent: systolic murmur, diastolic murmur, rubs, gallop, clicks Extremities exam: Present: other (Significant swelling, ecchymosis, erythema, and tenderness extending from just inferior to the right patella down to the toes.) Neurological exam: Present: alert, oriented X3, CN II-XII intact Psychiatric exam: Present: normal affect, normal mood Course Vital Signs 12/26/22 12/26/22 18:54 22:35 Temperature 97.4 F L 98.2 F Pulse Rate 75 78 Respiratory 17 18 Rate Blood Pressure 144/84 151/82 O2 Sat by Pulse 96 96 Oximetry Medical Decision Making - Medical Decision Making This is a 62-year-old male who presents to the emergency department for right lower extremity pain and swelling. Was pt. sent in by a medical professional or institution? @ -No Did you speak to anyone other than the patient for history? @ -No Did you review nursing and triage notes? @ -Yes, and I agree, it is accurate with regards to the patient's symptoms. Were old charts reviewed? @ -Yes, Duplex US of the right lower extremity from 12/21 revealing no evidence of a DVT. Differential Diagnosis? @ -Differential Leg Pain/Swelling: Cellullitis, Gout, DVT, PVD, arterial insufficiency, congestive heart failure, compartment syndrome, venous stasis changes, thrombophlebitis, contact dermatitis, necrotizing fasciitis, septic arthritis, this is not meant to be an all-inclusive list. EKG interpreted by me (3pts min.)? @ -Not obtained X-rays interpreted by me (1pt min.)? @ -X-ray of the right foot and tib-fib obtained. My interpretation identifies diffuse subcutaneous edema and no evidence of any fractures. CT interpreted by me (1pt min.)? @ -Not obtained U/S interpreted by me (1pt. min.)? @ -Ultrasound of the right lower extremity obtained. My interpretation identifies no evidence of a DVT. What testing was considered but not performed? (CT, X-rays, U/S, labs)? Why? @ -None What meds were considered but not given? Why? @ -None Did you discuss the management of the patient with other professionals? @ -No Did you reconcile home meds? @ -No Was smoking cessation discussed for >3mins.? @ -No Was critical care preformed (if so, how long)? @ -No Were there social determinants of health that impacted care today? How? (Homelessness, low income, unemployed, alcoholism, drug addiction, transportation, low edu. Level, literacy, decrease access to med. care, half-way, rehab)? @ -No Was there de-escalation of care discussed even if they declined? (Discuss DNR or withdrawal of care, Hospice)? @ -No What co-morbidities impacted this encounter? (DM, HTN, Smoking, COPD, CAD, Cancer, CVA, Hep., AIDS, mental health diagnosis, sleep apnea, morbid obesity)? @ -Osteoarthritis Was patient admitted / discharged? @ -Discharged. X-ray of the right foot and tib-fib obtained. Findings reveal diffuse subcutaneous edema and no evidence of any fractures or other acute process. Repeat duplex ultrasound obtained as well, also revealing no evidence of a DVT. Discussed that this could be part of the healing process or it may be another underlying etiology that has yet to be determined. Given that he has had areas of erythema and increased heat, will treat the patient for possible overlying cellulitis. Rx for Keflex provided with dosing instructions reviewed. He was given a three-day refill of the [place] and a prescription for Toradol was provided as well. He is again advised to take the [place] sparingly when his pain is the most severe and to avoid any other [id number] anti-inflammatories with the Toradol. Advised to continue to keep the leg elevated and wrapped and he will follow up with orthopedics as scheduled in 4 days. Undiagnosed new problem with uncertain prognosis? @ -None Drug Therapy requiring intensive monitoring for toxicity (Heparin, Nitro, Insulin, Cardizem)? @ -None Were any procedures done? @ -None Diagnosis/symptom? @ -Right lower extremity swelling, postoperative pain Acute, or Chronic, or Acute on Chronic? @ -Acute Uncomplicated (without systemic symptoms) or Complicated (systemic symptoms)? @ -Uncomplicated Side effects of treatment? @ -None Exacerbation, Progression, or Severe Exacerbation] @ -Not applicable Poses a threat to life or bodily function? @ -This is impacting his ability to ambulate. Return precautions reviewed in depth, the patient is instructed to return to the emergency department with any new, worsening, or concerning symptoms. Patient verbalized understanding. This case was discussed in detail with the attending ED physician, Dr. Jeffers. Presentation, findings, and treatment plan discussed in detail as well. - Radiology Data Radiology results: report reviewed, image reviewed Disposition Clinical Impression: Right leg swelling, Postoperative pain of extremity Disposition: HOME SELF-CARE Instructions (If sedation given, give patient instructions): Leg Pain (ED) Additional Instructions: Return to the emergency department with any new, worsening, or concerning symptoms. Take the antibiotic as prescribed for 5 days. Try taking the Toradol in place of the Aleve and see if that works any better for you. Just make sure you do not take them together. Continue to use the [place] as needed for severe pain. This this will make you drowsy and you should avoid driving or operating machinery when taking this. Try to keep the leg elevated as much as possible as well. Follow-up with orthopedics as scheduled. Prescriptions: Cephalexin [Keflex] 500 mg PO Q6HR 5 Days #20 cap HYDROcodone/APAP 7.5-325MG [[place] 7.5-325] 1 tab PO Q6HR PRN 3 Days #12 tab PRN Reason: Pain Ketorolac [Toradol] 10 mg PO Q6HR PRN #12 tab PRN Reason: Pain Is patient prescribed a controlled substance at d/c from ED?: Yes When asked, does pt state using other controlled substances?: Yes If prescribed controlled substance>3 days was MAPS reviewed?: Prescribed <3 Days Referrals: Sigrid Rai DO [Primary Care Provider] - 1-2 days Eleno Doe DO [Doctor of Osteopathic Medicine] - 1-2 days
--- NOTE | 2022-12-26 19:43 | XR ---
EXAMINATION TYPE: XR tibia fibula RT DATE OF EXAM: 12/26/2022 CLINICAL HISTORY: Pain and swelling. TECHNIQUE: Two views of the right leg are obtained. COMPARISON: None. FINDINGS: There is no acute fracture or dislocation seen in the right tibia or fibula. The right kn ee and ankle joints appear within normal limits. Mild to moderate diffuse subcutaneous edema is seen. IMPRESSION: As above.
--- NOTE | 2022-12-26 19:44 | XR ---
EXAMINATION TYPE: XR foot limited RT DATE OF EXAM: 12/26/2022 CLINICAL HISTORY: Right lower extremity pain and swelling TECHNIQUE: Frontal and lateral images of the right foot are obtained. COMPARISON: None FINDINGS: There is no acute displaced fracture in the right foot. Small to moderate size inferior c alcaneal spur. The joint spaces in the right foot appear within normal limits. Moderate soft tissue s welling is seen. IMPRESSION: As above.
[2022-12-26] MEDS ORDERED: CEPHALEXIN 500MG STARTER PACK 4 CAP BTL PO STA (22:08)
[2022-12-26] MEDS ORDERED: HYDROcodone/APAP 7.5-325MG 1 EACH TAB PO ONE (22:09)
[2022-12-26 22:37] VITALS: BP 151/82; PULSE 78; RESP 18; TEMP 98.2
--- NOTE | 2022-12-26 22:42 | US ---
EXAMINATION TYPE: US venous doppler duplex LE RT DATE OF EXAM: 12/26/2022 7:19 PM COMPARISON: 12/19/22 and 12/21/22 right lower extremity venous ultrasound CLINICAL INDICATION: Male, 62 years old with history of Right lower extremity pain and swelling; Righ t knee surgery 12/15/22. Swelling and bruising in rt calf area SIDE PERFORMED: Right TECHNIQUE: The lower extremity deep venous system is examined utilizing real time linear array sonog claudia with graded compression, doppler sonography and color-flow sonography. VESSELS IMAGED: Common Femoral Vein Deep Femoral Vein Greater Saphenous Vein * Femoral Vein Popliteal Vein Small Saphenous Vein * Proximal Calf Veins (* superficial vessels) Right Leg: Negative for DVT Grayscale, color doppler, spectral doppler imaging performed of the deep veins of the right lower ext remity. There is normal flow, compressibility, vascular waveforms. IMPRESSION: No ultrasound evidence for acute DVT in the right lower extremity. No significant change from recent prior.
== END 2022-12-26 22:36 | disposition home or self-care (01) ==
LOC: EC 18:36
DX: G89.18 Other acute postprocedural pain (principal); M79.604 Pain in right leg; I10 Essential (primary) hypertension; I25.10 Atherosclerotic heart disease of native coronary artery without angina pectoris; F32.A Depression, unspecified; M19.90 Unspecified osteoarthritis, unspecified site; J44.9 Chronic obstructive pulmonary disease, unspecified; Z79.899 Other long term (current) drug therapy; Z87.891 Personal history of nicotine dependence; Z90.49 Acquired absence of other specified parts of digestive tract; Z88.8 Allergy status to other drugs, medicaments and biological substances
CPT/HCPCS: 73590; 73620; 93971; 99284; 96372 ×3; J1170; J1885

== ENCOUNTER → 2023-09-01 | Outpatient (CLI) | payer MEDICARE, OTHER ==
[2023-09-01 16:17] LABS: ALT 49 U/L (10-49); AST 49 U/L (14-35); Albumin/Globulin Ratio 1.33 Ratio (1.60-3.17); Alkaline Phosphatase 84 U/L (41-126); BUN/Creat Ratio 23.55 Ratio (12.00-20.00); Blood Urea Nitrogen 25.9 mg/dL (9.0-27.0); Calcium 9.1 mg/dL (8.7-10.3); Carbon Dioxide 29.1 mmol/L (21.6-31.8); Chloride 107 mmol/L (96-109); Chol/HDL Ratio 2.11 Ratio; Glucose 115 mg/dL (70-110); LDL Cholesterol,Calculated 17.1 mg/dL (0.0-131.0); Potassium 3.8 mmol/L (3.5-5.5); Sodium 146 mmol/L (135-145)
== END | disposition home or self-care (01) ==
LOC: LABWHC1 09:32
PROVIDERS: ATTEND Internal Medicine Clinical Cardiac Electrophysiology
DX: I10 Essential (primary) hypertension (principal); I49.3 Ventricular premature depolarization; E78.5 Hyperlipidemia, unspecified
CPT/HCPCS: 36415; 80053; 80061; 84443

== ENCOUNTER 2024-10-31 07:11 | Day surgery (SDC) | payer MEDICARE, OTHER ==
[~2024-10-31 07:11] MED LIST changes: -DEXAMETHASONE SOD PHOSPHATE 4 MG/ML 1 ML VIAL IV ONE; -HYDROmorphone 0.5 MG/0.5 ML SYRINGE IVP PRN; -LACTATED RINGERS 1,000 ML IV SCH; +LIDOCAINE 1% (10MG/ML) FOR IV START INTRADERMA PRN; -ONDANSETRON 4 MG/2 ML VIAL IVP ONE; -ceFAZolin 3 GM in SODIUM CHLORIDE 0.9% 100 ML IVPB PRN
[2024-10-31 07:37] VITALS: TEMP 98.1
[2024-10-31] MEDS: IV FLUID CONTINUATION 1,000 ML IV ONE ×2 (07:40→07:50)
[2024-10-31] MEDS: LACTATED RINGERS 1,000 ML IV SCH (07:40)
[2024-10-31] MEDS ORDERED: PROPOFOL 10 MG/ML 20 ML VIAL IV ONE (07:50)
[2024-10-31] MEDS ORDERED: LIDOCAINE 1% INJ 10MG/ML (20 ML MDV) ONE (07:50)
[2024-10-31 07:53] LABS: Glucose,Whole Blood 102 mg/dL (70-110)
--- NOTE | 2024-10-31 08:10 | P.GSHP ---
History of Present Illness H&P Date: 10/31/24 Chief Complaint: Anemia, history of liver neoplasm This is a six 4-year-old male who was recently diagnosed with a liver mass. Patient is noted to be anemic. Patient is undergoing GI workup to evaluate anemia and the liver mass. Patient underwent core biopsy of liver mass last week. The results of this are not available. Past Medical History Past Medical History: Coronary Artery Disease (CAD), Chest Pain / Angina, COPD, Hearing Disorder / Deafness, Hyperlipidemia, Hypertension, Liver Disease, Osteoarthritis (OA), Respiratory Disorder, Sleep Apnea/CPAP/BIPAP Additional Past Medical History / Comment(s): Cirrhosis of liver. Hx Hep. C, finished tx, emphysema, hypoglycemia, uses CPAP, wears hearing aids. History of Any Multi-Drug Resistant Organisms: None Reported Past Surgical History: Cholecystectomy, Heart Catheterization With Stent, Hernia Repair, Orthopedic Surgery, Tonsillectomy Additional Past Surgical History / Comment(s): vasectomy, oral surgery, one cardiac stent, right knee arthroscopy Past Anesthesia/Blood Transfusion Reactions: No Reported Reaction, Motion Sickness Additional Past Anesthesia/Blood Transfusion Reaction / Comment(s): [place] on a cruise Date of Last Stent Placement:: 09/06/19 Smoking Status: Former smoker - Past Family History Mother Family Medical History: Deep Vein Thrombosis (DVT) Additional Family Medical History / Comment(s): . Medications and Allergies Home Medications Medication Instructions Recorded Confirmed Type Multivitamins, Thera [Multivitamin 1 tab PO DAILY 12/05/17 10/31/24 History (formulary)] Sertraline [Zoloft] 50 mg PO HS 12/05/17 10/31/24 History Omeprazole [PriLOSEC] 40 mg PO QAM 01/10/19 10/31/24 History lisinopriL 40 mg PO HS 01/10/19 10/31/24 History Atorvastatin [Lipitor] 80 mg PO HS 09/16/20 10/31/24 History Albuterol Inhaler [Ventolin Hfa 1 - 2 puff INHALATION Q6H PRN 10/29/24 10/31/24 History Inhaler] Metoprolol Succinate (ER) [Toprol 25 mg PO DAILY 10/29/24 10/31/24 History Xl] Potassium Chloride ER [K-Dur 10] 10 meq PO DAILY 10/29/24 10/31/24 History Tamsulosin HCl [Flomax] 0.4 mg PO BID 10/29/24 10/31/24 History traMADol HCL 50 mg PO Q6H PRN 10/29/24 10/31/24 History Allergies Allergy/AdvReac Type Severity Reaction Status Date / Time bupropion [From Wellbutrin] Allergy Rash/Hives/ Verified 10/31/24 07:29 itching Surgical - Exam Vital Signs Temp Pulse Resp BP Pulse Ox 98.1 F 82 16 117/72 93 L 10/31/24 07:32 10/31/24 07:32 10/31/24 07:32 10/31/24 07:32 10/31/24 07:32 - General well developed, well nourished, no distress - Eyes PERRL - ENT normal pinna - Neck no masses - Respiratory normal expansion - Cardiovascular Rhythm: regular - Abdomen Abdomen: soft, non tender Assessment and Plan Assessment: Anemia, liver neoplasm. Patient will be scheduled for EGD colonoscopy.
--- NOTE | 2024-10-31 08:20 | P.OP ---
Date of Procedure: 10/31/24 Preoperative Diagnosis: Anemia Liver neoplasm Postoperative Diagnosis: Antral gastritis Submucosal mass cardia of stomach Hemorrhoids Procedure(s) Performed: EGD Colonoscopy Anesthesia: MAC Surgeon: Wilbur Walker Pathology: other (Antrum, cardia) Condition: stable Disposition: PACU Description of Procedure: The patient was placed on the endoscopy table in the lateral position. He received IV sedation. The gas was placed oropharynx passed in the esophagus and the stomach. Scope was placed through the pylorus. The first and second portion of the duodenum appeared normal. Scope was then brought back to the antrum this was minimal Flaim. A biopsy was performed. The scope was then retroflexed and remainder of the stomach appeared normal. There was a possible submucosal mass seen in the cardia of the stomach. The cardia was biopsied. The GE junction was at 40 cm. The distal esophagus appeared normal. The proximal esophagus appeared normal. Scope withdrawn for the patient. Next digital rectal exam was performed. This revealed some internal and external hemorrhoids. The flexible colonoscope was then placed patient anus passed throughout the entire colon. The ileocecal valve was visualized. The cecum, ascending and transverse colon appeared normal. The descending and si gmoid colon appeared normal. The scope was brought back to the rectum this appeared normal. Scope withdrawn with patient. And internal/external hemorrhoids noted. There was no obvious source of GI bleed or colonic or upper GI neoplasm.
[2024-10-31 08:29] VITALS: RESP 16
[2024-10-31 09:01] VITALS: BP 108/61; PULSE 77
== END 2024-10-31 09:24 | disposition home or self-care (01) ==
LOC: ORWHC2ENDO 07:11
PROVIDERS: ATTEND Surgery
DX: D50.9 Iron deficiency anemia, unspecified (principal); K29.50 Unspecified chronic gastritis without bleeding; K64.8 Other hemorrhoids; K64.4 Residual hemorrhoidal skin tags; D64.9 Anemia, unspecified; E78.5 Hyperlipidemia, unspecified; G47.30 Sleep apnea, unspecified; I10 Essential (primary) hypertension; I25.10 Atherosclerotic heart disease of native coronary artery without angina pectoris; M19.90 Unspecified osteoarthritis, unspecified site; Z87.891 Personal history of nicotine dependence; Z88.8 Allergy status to other drugs, medicaments and biological substances; Z90.49 Acquired absence of other specified parts of digestive tract; Z90.89 Acquired absence of other organs; Z95.5 Presence of coronary angioplasty implant and graft; Z98.890 Other specified postprocedural states
CPT/HCPCS: 88305; 45378; 43239; J2003; J2704

== ENCOUNTER 2025-01-28 13:49 | Emergency (ER) | payer MEDICARE, OTHER ==
[2025-01-28 14:18] LABS: Basophils # (A) 0.02 10*3/uL (0.00-0.10); Basophils % (A) 0.6 %; Eosinophils # (A) 0.07 10*3/uL (0.04-0.35); HCT 35.5 % (39.6-50.0); HGB 11.9 g/dL (13.0-17.0); Lymphocytes # (A) 0.68 10*3/uL (0.90-5.00); Lymphocytes % (A) 19.3 %; MCH 31.2 pg (27.0-32.0); MCHC 33.5 g/dL (32.0-37.0); MCV 93.2 fL (80.0-97.0); Mean Platelet Volume 11.4 fL (9.5-12.2); Monocytes % (A) 11.4 %; Neutrophils # (A) 2.34 10*3/uL (1.80-7.70); Neutrophils % (A) 66.4 %; RBC 3.81 10*6/uL (4.40-5.60); WBC 3.52 10*3/uL (4.50-10.00)
[2025-01-28 14:27] LABS: INR 1.2 (<1.2); Partial Thromboplastin Time 26.1 sec (22.0-30.0)
[2025-01-28 14:36] LABS: ALT 31 U/L (4-49); AST 50 U/L (17-59); African American GFR (CKD) >90 (>60 ml/min/1.73 sqM); Albumin 4.1 g/dL (3.5-5.0); Alkaline Phosphatase 112 U/L (38-126); Anion Gap 10 mmol/L; Blood Urea Nitrogen 13 mg/dL (9-20); Calcium 8.5 mg/dL (8.4-10.2); Carbon Dioxide 27 mmol/L (22-30); Chloride 104 mmol/L (98-107); Glucose 103 mg/dL (74-99); Magnesium 1.8 mg/dL (1.6-2.3); Non-African American GFR(CKD) 89 (>60 ml/min/1.73 sqM); Potassium 3.9 mmol/L (3.5-5.1); Sodium 141 mmol/L (137-145); Total Bilirubin 1.2 mg/dL (0.2-1.3); Total Protein 7.9 g/dL (6.3-8.2)
--- NOTE | 2025-01-28 15:08 | XR ---
EXAMINATION TYPE: XR chest 2V DATE OF EXAM: 01/28/2025 3:05 PM COMPARISON: None. CLINICAL INDICATION: Male, 64 years old with history of Chest Pain, TECHNIQUE: XR chest 2V view(s) obtained. FINDINGS: The heart size is normal. The pulmonary vasculature is normal. The lungs are clear. IMPRESSION: 1. No acute pulmonary process. [facility], , 01/28/2025 3:06 PM
[2025-01-28 15:22] LABS: Platelet Count 75 10*3/uL (140-440)
--- NOTE | 2025-01-28 16:40 | ED ---
General Adult HPI - General Source: patient, RN notes reviewed Mode of arrival: ambulatory Limitations: no limitations <StacieMati - Last Filed: 01/28/25 16:57> - General Source: patient, RN notes reviewed, old records reviewed Mode of arrival: ambulatory Limitations: no limitations - History of Present Illness -: days(s) Location: chest Severity scale (1-10): 7 Quality: sharp Consistency: constant Improves with: none Worsens with: none Associated Symptoms: chest pain Treatments Prior to Arrival: none <Sumit Wick - Last Filed: 01/28/25 20:02> - General Chief complaint: Chest Pain Stated complaint: Chest pain,R arm/neck pain Time Seen by Provider: 01/28/25 14:03 - History of Present Illness Initial comments: Quick note: This is a 64-year-old male with history including CAD, stent, cholecystectomy, hypertension, hyperlipidemia presenting for right chest pain (05/23) since this morning. Patient states pain radiates to his right shoulder and neck as well as his right flank with associated SOB. States pain worsens with movement and inhalation, described as twisting, also radiating to his mid back. Patient endorses having a Y90 liver procedure performed on 01/10/2025, with pain initially starting following that procedure, and is on the list for a liver transplant. (Mati Quinones) This is a 64 male to ER with history of CAD coming in for chest pain and a right-sided chest pain. He has had history of gallbladder pain after liver procedure and right shoulder. With this pain in his right side of his chest worse than prior noted. No shortness of breath chest pain right-sided chest pain (Sumit Wick) - Related Data Home Medications Medication Instructions Recorded Confirmed Multivitamins, Thera [Multivitamin 1 tab PO DAILY 12/05/17 10/31/24 (formulary)] Sertraline [Zoloft] 50 mg PO HS 12/05/17 10/31/24 Omeprazole [PriLOSEC] 40 mg PO QAM 01/10/19 10/31/24 lisinopriL 40 mg PO HS 01/10/19 10/31/24 Atorvastatin [Lipitor] 80 mg PO HS 09/16/20 10/31/24 Albuterol Inhaler [Ventolin Hfa 1 - 2 puff INHALATION Q6H PRN 10/29/24 10/31/24 Inhaler] Metoprolol Succinate (ER) [Toprol 25 mg PO DAILY 10/29/24 10/31/24 Xl] Potassium Chloride ER [K-Dur 10] 10 meq PO DAILY 10/29/24 10/31/24 Tamsulosin HCl [Flomax] 0.4 mg PO BID 10/29/24 10/31/24 traMADol HCL 50 mg PO Q6H PRN 10/29/24 10/31/24 Allergies Allergy/AdvReac Type Severity Reaction Status Date / Time bupropion [From Wellbutrin] Allergy Rash/Hives/ Verified 01/28/25 13:58 itching Review of Systems ROS Other: All systems not noted in ROS Statement are negative. <Mati Quinones - Last Filed: 01/28/25 16:57> ROS Other: All systems not noted in ROS Statement are negative. <Sumit Wick - Last Filed: 01/28/25 20:02> ROS Statement: Those systems with pertinent positive or pertinent negative responses have been documented in the HPI. Past Medical History Past Medical History: Coronary Artery Disease (CAD), Chest Pain / Angina, COPD, Hearing Disorder / Deafness, Hyperlipidemia, Hypertension, Liver Disease, Osteoarthritis (OA), Respiratory Disorder, Sleep Apnea/CPAP/BIPAP Additional Past Medical History / Comment(s): Cirrhosis of liver. Hx Hep. C, finished tx, emphysema, hypoglycemia, uses CPAP, wears hearing aids. History of Any Multi-Drug Resistant Organisms: None Reported Past Surgical History: Cholecystectomy, Heart Catheterization With Stent, Hernia Repair, Orthopedic Surgery, Tonsillectomy Additional Past Surgical History / Comment(s): vasectomy, oral surgery, one cardiac stent, right knee arthroscopy Past Anesthesia/Blood Transfusion Reactions: No Reported Reaction, Motion Sickness Additional Past Anesthesia/Blood Transfusion Reaction / Comment(s): [place] on a cruise Date of Last Stent Placement:: 09/06/19 Past Psychological History: Depression Smoking Status: Former smoker - Past Family History Mother Family Medical History: Deep Vein Thrombosis (DVT) Additional Family Medical History / Comment(s): . <Mati Quinones - Last Filed: 01/28/25 16:57> General Exam Limitations: no limitations <Mati Quinones - Last Filed: 01/28/25 16:57> General appearance: alert, in no apparent distress Head exam: Present: atraumatic, normocephalic, normal inspection Eye exam: Present: normal appearance, PERRL, EOMI. Absent: scleral icterus, con junctival injection, periorbital swelling ENT exam: Present: normal exam, mucous membranes moist Neck exam: Present: normal inspection. Absent: tenderness, meningismus, lymphadenopathy Respiratory exam: Present: normal lung sounds bilaterally. Absent: respiratory distress, wheezes, rales, rhonchi, stridor Cardiovascular Exam: Present: regular rate, normal rhythm, normal heart sounds. Absent: systolic murmur, diastolic murmur, rubs, gallop, clicks GI/Abdominal exam: Present: soft, normal bowel sounds. Absent: distended, tenderness, guarding, rebound, rigid Extremities exam: Present: normal inspection, full ROM, normal capillary refill. Absent: tenderness, pedal edema, joint swelling, calf tenderness Back exam: Present: normal inspection Neurological exam: Present: alert, oriented X3, CN II-XII intact Psychiatric exam: Present: normal affect, normal mood Skin exam: Present: warm, dry, intact, normal color. Absent: rash <Sumit Wick - Last Filed: 01/28/25 20:02> - General Exam Comments Initial Comments: Visual Physical Exam Vital signs reviewed General: Well-appearing, nontoxic, no acute distress. Head: Normocephalic, atraumatic Eyes: PERRLA, EOMI ENT: Airway patent Chest: Nonlabored breathing Skin: No visual rash, normal skin tone Neuro: Alert and oriented 3 Musculoskeletal: No gross abnormalities (Mati Quinones) Course <Sumit Wick - Last Filed: 01/28/25 20:02> Vital Signs 01/28/25 01/28/25 01/28/25 13:55 16:58 17:21 Temperature 98 F Pulse Rate 70 71 Pulse Rate [ 75 Pre Press Operator ] Respiratory 22 18 Rate Blood Pressure 124/78 118/74 O2 Sat by Pulse 95 98 Oximetry - Reevaluation(s) Reevaluation #1: 01/28/25 20:01 Medical records reviewed (Sumit Wick) Reevaluation #2: 01/28/25 20:01 Patient symptoms improved (Sumit Wick) Reevaluation #3: 01/28/25 20:01 Patient informed of results and questions answered (Sumit Wick) Reevaluation #4: Was pt. sent in by a medical professional or institution ([facility], SLOT MACHINE DEPARTMENT FLOORPERSON, urgent care, hospital, or [facility]...) When possible be specific @ -no Did you speak to anyone other than the patient for history (EMS, parent, family, police, friend...)? What history was obtained from this source @ -no Did you review nursing and triage notes (agree or disagree)? Why? @ -agree Are old charts reviewed (outside hosp., previous admission, EMS record, old EKG, old radiological studies, urgent care reports/EKG's, [facility] records)? Report findings @ -yes Differential Diagnosis (chest pain, altered mental status, abdominal pain women, abdominal pain men, vaginal bleeding, weakness, fever, dyspnea, syncope, headache, dizziness, GI bleed, back pain, seizure, CVA, palpatations, mental health, musculoskeletal)? @ -prior EKG interpreted by me (3pts min.). @ -yes X-rays interpreted by me (1pt min.). @ -yes negative for acute disease CT interpreted by me (1pt min.). @ -no U/S interpreted by me (1pt. min.). @ -no What testing was considered but not performed or refused? (CT, X-rays, U/S, labs)? Why? @ -none What meds were considered but not given or refused? Why? @ -none Did you discuss the management of the patient with other professionals (professionals i.e. [facility], [employer] MACH[employer] DEPARTMENT FLOORPERSON, lab, RT, psych nurse, social sciences lecturer, sane nurse, teacher, product safety officer, corrections caseworker)? Give summary @ -no Was smoking cessation discussed for >3mins.? @ -no Was critical care preformed (if so, how long)? @ -no Were there social determinants of health that impacted care today? How? (Homelessness, low income, unemployed, alcoholism, drug addiction, transportation, low edu. Level, literacy, decrease access to med. care, detention, rehab)? @ -none Was there de-escalation of care discussed even if they declined (Discuss DNR or withdrawal of care, Hospice)? DNR status @ -no What co-morbidities impacted this encounter? (DM, HTN, Smoking, COPD, CAD, Cancer, CVA, ARF, Chemo, Hep., AIDS, mental health diagnosis, sleep apnea, morbid obesity)? @ -none Was patient admitted / discharged? Hospital course, mention meds given and route, prescriptions, significant lab abnormalities, going to OR and other pertinent info. @ - Undiagnosed new problem with uncertain prognosis? @ -no Drug Therapy requiring intensive monitoring for toxicity (Heparin, Nitro, Insulin, Cardizem)? @ -no Were any procedures done? @ -no Diagnosis/symptom? @ - Acute, or Chronic, or Acute on Chronic? @ -Acute Uncomplicated (without systemic symptoms) or Complicated (systemic symptoms)? @ -Complicated Side effects of treatment? @ -no Exacerbation, Progression, or Severe Exacerbation? @ -exacerbation Poses a threat to life or bodily function? How? (Chest pain, [place], [place], pneumonia, PE, COPD, DKA, ARF, appy, cholecystitis, CVA, Diverticulitis, Homicidal, Suicidal, threat to staff... and all critical care pts) @ -yes (Sumit Wick) Reevaluation #5: Differential Chest Pain: Stable Angina, Unstable Angina, STEMI, NSTEMI Aortic Dissection, Pneumothorax, Musculoskeletal, Esophageal Spasm GERD, Cholecystitis, Pancreatitis, Zoster, this is not meant to be an all-inclusive list. (Sumit Wick) Medical Decision Making - Lab Data Result diagrams: 01/28/25 14:08 01/28/25 14:08 <Mati Quinones - Last Filed: 01/28/25 16:57> - Lab Data Result diagrams: 01/28/25 14:08 01/28/25 14:08 - Radiology Data Radiology results: report reviewed (Chest x-ray CT chest CT abdomen pelvis negative for acute disease), image reviewed <Sumit Wick - Last Filed: 01/28/25 20:02> - Medical Decision Making I completed the quick note portion of this chart signed YADY Guo (Mati Quinones) 64 male to ER for evaluation of chest pain. Right-sided chest pain patient has had a poorly controlled pain here in the ER patient can be discharged home (Sumit Wick) - Lab Data Lab Results 01/28/25 01/28/25 01/28/25 Range/Units 14:08 14:08 14:08 WBC 3.52 L (4.50-10.00) 10*3/uL RBC 3.81 L (4.40-5.60) 10*6/uL Hgb 11.9 L (13.0-17.0) g/dL Hct 35.5 L (39.6-50.0) % MCV 93.2 (80.0-97.0) fL MCH 31.2 (27.0-32.0) pg MCHC 33.5 (32.0-37.0) g/dL Plt Count 75 L (140-440) 10*3/uL MPV 11.4 (9.5-12.2) fL Immature Gran % (Auto) 0.3 % Neutrophils % 66.4 % Lymphocytes % 19.3 % Monocytes % 11.4 % Eosinophils % 2.0 % Basophils % 0.6 % Immature Gran # 0.01 (0.00-0.04) 10*3/uL Neutrophils # 2.34 (1.80-7.70) 10*3/uL Lymphocytes # 0.68 L (0.90-5.00) 10*3/uL Monocytes # 0.40 (0.20-1.00) 10*3/uL Eosinophils # 0.07 (0.04-0.35) 10*3/uL Basophils # 0.02 (0.00-0.10) 10*3/uL Manual Slide Review Performed PT 13.0 H (10.0-12.5) sec INR 1.2 H (<1.2) APTT 26.1 (22.0-30.0) sec Sodium 141 (137-145) mmol/L Potassium 3.9 (3.5-5.1) mmol/L Chloride 104 (98-107) mmol/L Carbon Dioxide 27 (22-30) mmol/L Anion Gap 10 mmol/L BUN 13 (9-20) mg/dL Creatinine 0.89 (0.66-1.25) mg/dL Est GFR (CKD-EPI)AfAm >90 (>60 ml/min/1.73 sqM) Est GFR (CKD-EPI)NonAf 89 (>60 ml/min/1.73 sqM) Glucose 103 H (74-99) mg/dL Calcium 8.5 (8.4-10.2) mg/dL Magnesium 1.8 (1.6-2.3) mg/dL Total Bilirubin 1.2 (0.2-1.3) mg/dL AST 50 (17-59) U/L ALT 31 (4-49) U/L Alkaline Phosphatase 112 (38-126) U/L Troponin I (0.000-0.034) ng/mL Total Protein 7.9 (6.3-8.2) g/dL Albumin 4.1 (3.5-5.0) g/dL Urine Color Urine Appearance (Clear) Urine pH (5.0-8.0) Ur Specific [place] (1.001-1.035) Urine Protein (Negative) Urine Glucose (UA) (Negative) Urine Ketones (Negative) Urine Blood (Negative) Urine Nitrite (Negative) Urine Bilirubin (Negative) Urine Urobilinogen (<2.0) mg/dL Ur Leukocyte Esterase (Negative) Urine RBC (0-5) /hpf Urine WBC (0-5) /hpf 01/28/25 01/28/25 Range/Units 14:08 18:30 WBC (4.50-10.00) 10*3/uL RBC (4.40-5.60) 10*6/uL Hgb (13.0-17.0) g/dL Hct (39.6-50.0) % MCV (80.0-97.0) fL MCH (27.0-32.0) pg MCHC (32.0-37.0) g/dL Plt Count (140-440) 10*3/uL MPV (9.5-12.2) fL Immature Gran % (Auto) % Neutrophils % % Lymphocytes % % Monocytes % % Eosinophils % % Basophils % % Immature Gran # (0.00-0.04) 10*3/uL Neutrophils # (1.80-7.70) 10*3/uL Lymphocytes # (0.90-5.00) 10*3/uL Monocytes # (0.20-1.00) 10*3/uL Eosinophils # (0.04-0.35) 10*3/uL Basophils # (0.00-0.10) 10*3/uL Manual Slide Review PT (10.0-12.5) sec INR (<1.2) APTT (22.0-30.0) sec Sodium (137-145) mmol/L Potassium (3.5-5.1) mmol/L Chloride (98-107) mmol/L Carbon Dioxide (22-30) mmol/L Anion Gap mmol/L BUN (9-20) mg/dL Creatinine (0.66-1.25) mg/dL Est GFR (CKD-EPI)AfAm (>60 ml/min/1.73 sqM) Est GFR (CKD-EPI)NonAf (>60 ml/min/1.73 sqM) Glucose (74-99) mg/dL Calcium (8.4-10.2) mg/dL Magnesium (1.6-2.3) mg/dL Total Bilirubin (0.2-1.3) mg/dL AST (17-59) U/L ALT (4-49) U/L Alkaline Phosphatase (38-126) U/L Troponin I <0.012 (0.000-0.034) ng/mL Total Protein (6.3-8.2) g/dL Albumin (3.5-5.0) g/dL Urine Color Yellow Urine Appearance Clear (Clear) Urine pH 6.5 (5.0-8.0) Ur Specific [place] >1.050 H (1.001-1.035) Urine Protein Negative (Negative) Urine Glucose (UA) Negative (Negative) Urine Ketones Negative (Negative) Urine Blood Trace H (Negative) Urine Nitrite Negative (Negative) Urine Bilirubin Negative (Negative) Urine Urobilinogen 3.0 (<2.0) mg/dL Ur Leukocyte Esterase Negative (Negative) Urine RBC 3 (0-5) /hpf Urine WBC 1 (0-5) /hpf Disposition <Mati Quinones - Last Filed: 01/28/25 16:57> Is patient prescribed a controlled substance at d/c from ED?: No Time of Disposition: 19:35 <Sumit Wick - Last Filed: 01/28/25 20:02> Clinical Impression: Atypical chest pain, Chest pain Disposition: HOME SELF-CARE Condition: Fair Instructions (If sedation given, give patient instructions): Chest Pain (ED) Referrals: Jennifer Camacho DO [Primary Care Provider] - 1-2 days
[2025-01-28] MEDS: SODIUM CHLORIDE 0.9% 1,000 ML IV ONE (17:20)
--- NOTE | 2025-01-28 18:05 | CT ---
EXAMINATION TYPE: CT angio chest DATE OF EXAM: 01/28/2025 5:46 PM COMPARISON: 12/18/2018 CLINICAL INDICATION: Male, 64 years old with history of PE, Right side chest pain that radiates towar ds neck and shoulder, recent procedure done for liver tumor., TECHNIQUE: CT of the chest is performed on a spiral scan at 2 mm thick sections. Study is performed with intravenous contrast timed for evaluation for pulmonary embolism. This will limit additional po rtions of the evaluation. 10mm MIP images reconstructed by the technologist are reviewed on the comp uter in the coronal and sagittal planes. Contrast used:100 mL of Isovue 370 with IV Contrast, (none if empty) Oral contrast used: (none if empty) CT DLP: combined 2654.2 mGycm, Automated exposure control for dose reduction was used. FINDINGS: No persistent filling defects are evident to suggest an acute pulmonary embolism. No mediastinal or hilar adenopathy enlarged by CT criteria is evident. The ascending aorta diameter at the level of the main pulmonary artery is 3.4 cm. The main pulmonary artery diameter at the bifurcation is 2.7 cm. Lung windows are clear. Moderate coronary artery calcifications present. Limited CT sections were through the upper abdomen. Metallic marker is within the right lobe liver IMPRESSION: 1. No acute pulmonary embolism. 2. No acute pulmonary process. [facility], , 01/28/2025 6:02 PM
--- NOTE | 2025-01-28 18:25 | CT ---
EXAMINATION TYPE: CT abdomen pelvis w con DATE OF EXAM: 01/28/2025 5:48 PM COMPARISON: None. CLINICAL INDICATION: Male, 64 years old with history of pain, Right side chest pain that radiates tow ards neck and shoulder, recent procedure done for liver tumor. TECHNIQUE: Axial images were obtained from above the diaphragm to the pubic rami in the axial plane a t 5 mm thick sections. Reconstructed images are reviewed on the computer in the coronal plane. CONTRAST: 100 mL of Isovue 370. Study performed without Oral Contrast DLP: combined 2654.2 mGycm, Automated exposure control for dose reduction was used. FINDINGS: Limited CT sections are obtained the lung bases. The lung bases are clear. CT ABDOMEN: There is a periumbilical hernia containing mesenteric fat. The opening is 1.6 cm. No loo ps of bowel are involved. There is some mild increased density within this mesenteric fat. Correlate for cursory fat. Liver: There is mild fatty infiltration of the liver. There is an irregular hypodensity within the po sterior right lobe liver. A marker has some metallic scatter artifact adjacent may be compatible with the patient's reported hepatic tumor procedure. Splenic varices appear to be present. Spleen: Enlarged Pancreas: Normal Adrenal glands: The adrenal glands are normal. Gallbladder: Normal Kidneys: No masses are evident. No hydronephrosis is present. No cysts are present. Delayed images were obtained through the kidneys, which remain unremarkable. Aorta: Vascular calcification is within the aorta. Inferior vena cava: Normal. CT PELVIS: Loops of bowel within the abdomen and pelvis are normal. Few diverticuli within the sigmoid colon The study is without oral contrast limits evaluation. Appendix: Normal as visualized. Urinary bladder: Decompressed limiting evaluation Genitourinary structures: Prostate contains calcification Osseous structures: No suspicious lytic or sclerotic lesions. IMPRESSION: 1. Diverticulosis without acute diverticulitis. 2. Splenomegaly. Multiple varices around the splenic hilum. 3. Irregular hypodense mass within the liver with a marker likely patient's recent tumor treatment. [facility], , 01/28/2025 6:22 PM
[2025-01-28 18:30] VITALS: RESP 18
[2025-01-28 18:45] LABS: Appearance,Urine Clear (Clear); Bilirubin,Urine Negative (Negative); Blood,Urine Trace (Negative); Color,Urine Yellow; Glucose,Urine (UA) Negative (Negative); Ketones,Urine Negative (Negative); Leukocyte Esterase,Urine Negative (Negative); Nitrite,Urine Negative (Negative); PH, Urine 6.5 (5.0-8.0); Protein,Urine Negative (Negative); RBC,Urine 3 /hpf (0-5); WBC,Urine 1 /hpf (0-5)
[2025-01-28 18:51] LABS: Specific Gravity,Urine >1.050 (1.001-1.035)
[2025-01-28] MEDS: traMADol 50 MG STARTER PACK 3 TAB BTL PO STA (20:23)
[2025-01-28] MEDS: HYDROmorphone 1 MG/ML 1 ML SYRINGE IVP STA (20:24)
[2025-01-28 20:31] VITALS: BP 112/69; PULSE 70; TEMP 97.7
== END 2025-01-28 20:49 | disposition home or self-care (01) ==
LOC: EC 13:49
DX: R07.89 Other chest pain (principal); Z87.891 Personal history of nicotine dependence; Z88.8 Allergy status to other drugs, medicaments and biological substances
CPT/HCPCS: 36415; 93005; 80053; 83735; 84484; 85025; 85610; 85730; 81001; 71046; 71275; 74177; 99285; 96374; 96361 ×2; J1171; Q9967